=== PATIENT | female | born 1930 | race Caucasian/White ===

== ENCOUNTER 2017-10-22 10:56 | Observation (INO) ==
--- NOTE | 2017-10-22 12:08 | Emergency Department Report ---
Extremity Problem HPI - General Chief complaint: Extremity Problem,Nontraumatic Stated complaint: right leg pain Time Seen by Provider: 10/22/17 12:08 Source: patient, family - History of Present Illness HPI Narrative: 87 YO F presents to ED with right lateral hip/thigh pain that started last 10-17-17. Patient denies any known injury/trauma. Pain is worse with movement. Saw GABE at Dr. Perrin's office who did an x-ray which did not show any acute findings. PA sent patient to PT and pain has worsen since that time. Patient presents to the ED today with 10/10 pain and has been taking tylenol which has not improved pain. Patient denies fever, chills, nausea, vomiting, abdominal pain, new swelling of right leg/calf pain. Severity scale (1-10): 10 - Related Data Home Medications Medication Instructions Recorded Confirmed Atorvastatin Calcium 40 mg PO HS #0 05/21/16 10/22/17 Cholecalciferol [Vit. D-3] 1,000 unit PO DAILY #0 05/21/16 10/22/17 NIFEdipine [Afeditab Cr] 30 mg PO PM #0 05/21/16 10/22/17 Nitroglycerin 0.4 mg SL Q5MIN PRN #0 05/21/16 10/22/17 Warfarin Sodium 4 mg PO MOTH #0 05/21/16 10/22/17 Acetaminophen [Pain Relief] 500 mg PO Q6H 10/22/17 10/22/17 Calcium Citrate 1,200 mg PO DAILY 10/22/17 10/22/17 Carvedilol 25 mg PO BID 10/22/17 10/22/17 Fesoterodine SR [Toviaz] 4 mg PO AM 10/22/17 10/22/17 Latanoprost [Latanoprost] 1 drop EACH EYE HS 10/22/17 10/22/17 Pyridostigmine [Mestinon] 60 mg PO TID 10/22/17 10/22/17 Vitamin B Complex [Super B-50 1 each PO DAILY 10/22/17 10/22/17 Complex] Warfarin [Coumadin] 3 mg PO SUTUWEFRSA 10/22/17 10/22/17 hydroCHLOROthiazide 25 mg PO MOWEFR 10/22/17 10/22/17 [Hydrochlorothiazide] Allergies Allergy/AdvReac Type Severity Reaction Status Date / Time meloxicam Allergy Unknown Verified 10/22/17 11:17 aspirin AdvReac Intermediate BLEEDING Verified 10/22/17 11:17 STOMACH codeine AdvReac Intermediate STOMACH Verified 10/22/17 11:17 ACHE lisinopril AdvReac Mild COUGH Verified 10/22/17 11:17 Sulfa (Sulfonamide AdvReac Mild UPSET Verified 10/22/17 11:17 Antibiotics) STOMACH acetaminophen AdvReac Unknown N/V Verified 10/22/17 11:17 hydrocodone AdvReac Unknown N/V Verified 10/22/17 11:17 Review of Systems All systems: reviewed and negative except as stated Musculoskeletal: Reports: as per HPI, arthralgia, myalgia PFSH Patient Stated Medical History Glaucoma Yes Cardiac Arrhythmia Yes: AFib Congestive Heart Failure Yes Hypertension Yes Pneumonia Yes Sleep Apnea Yes Gastroesophageal Reflux Yes Disease Clinic Medical History (Last Updated 10/01/17 @ 13:49 by LORENA Leo ) Atrial dilatation (Chronic Medical) CPAP/BiPAP dependence (Chronic Medical) FH: HTN (hypertension) (Chronic Medical) Surgical History: x 2. viens both legs. bunion both feet. cataract. laser surgery for glaucoma: September & October 2016 Family History: Family History (Last Reviewed 10/01/17 @ 13:45 by LORENA Leo) Father Heart attack Mother Heart attack Paternal Grandmother Gallbladder cancer Maternal Grandfather Heart disease Paternal Grandfather Heart disease - Social History Smoking status: Never smoker Substance use type: does not use Alcohol intake frequency: does not drink Current occupational status: retired Physical Exam - General General appearance: alert - Normal Exams: Head:: Normocephalic without trauma Eyes:: No scleral icterus, irritation ENMT:: No facial trauma, nasal exudates Chest/Respirations:: Clear all hdz, with good airflow, and symmetry bilaterally Cardiovascular:: Regular rate and rhythm, Pulses 2+ all extremities Neurological:: Patient is alert, and oriented, motor/sensory/cerebellar, exams w /o gross deficits, to observation Psychiatric:: Patient exhibits, appropriate attention, emotion and affect - Eye Eye exam: Present: EOMI - Neck Neck exam: Present: trachea midline - Abdominal Exam Abdominal exam: Present: soft, tenderness (mild TTP in right groin), normal bowel sounds (x4). Absent: distention, guarding, rebound, rigidity - Expanded Lower Extremity Exam right Hip/Pelvis exam: Present: full ROM, tenderness (mild TTP over lateral hip), pelvis stable. Absent: swelling, ecchymosis, deformity, crepitus, dislocation, erythema, external rotation, internal rotation, shortening Upper leg exam: Present: tenderness (mild TTP over lateral thigh). Absent: swelling, ecchymosis, deformity, crepitus, dislocation, erythema Knee exam: Present: full ROM. Absent: tenderness, swelling, ecchymosis, deformity Ankle exam: Present: full ROM. Absent: tenderness, swelling, ecchymosis, deformity, crepitus Foot/toe exam: Present: full ROM. Absent: tenderness, swelling Neurovascular/Tendon exam: Present: normal fine/light touch. Absent: sensory deficit, extremity cold to touch, pallor - Skin Skin exam: Present: warm, dry Course - Consultations Consultation #1: I discussed patient's HPI, past medical history, CT scans, labs, vital signs, exam findings and treatment in the ER with Dr. Khan hospitalist. Dr. Khan will admit patient observation medical. Vital Signs Temperature 98.7 F 10/22/17 11:00 Pulse Rate 74 10/22/17 11:00 Respiratory Rate 24 10/22/17 11:00 Blood Pressure 233/95 H 10/22/17 11:00 Pulse Oximetry 95 10/22/17 11:00 Temperature 97.7 F 10/22/17 16:57 Pulse Rate 83 10/22/17 19:25 Respiratory Rate 16 10/22/17 16:57 Blood Pressure 180/85 H 10/22/17 20:00 Pulse Oximetry 97 10/22/17 16:57 Extremity Problem, Nontraumati - [facility] Narrative Medical decision making narrative: Dr. Ornelas called with report of large retroperitoneal hemorrhage extending along the right iliopsoas muscle with large hematoma. Due to patient history of no known trauma most likely related to warfarin anticoagulation. Hgb 8.8, last Hgb to compare was 11-16 of 12.5 BUN 27. - Differential Diagnosis Likely: cellulitis (, sciatica, musculoskeletal pain, arthritis, fracture), deep vein thrombosis of lower extremity - Medical Records Attestation: I reviewed the patient's medical records. - Lab Data Attestation: I reviewed the patient's lab results. Result diagrams: 10/22/17 20:50 10/22/17 14:29 Lab Results 10/22/17 10/22/17 10/22/17 Range/Units 14:29 14:30 14:30 WBC 6.1 (4.5-11.0) T/MM3 RBC 2.83 L (4.00-5.20) M/MM3 Hgb 8.8 L (12-16) GM/DL Hct 27.7 L (36-46) % MCV 97.9 (80-100) UM3 MCH 31.1 (26-34) UUG MCHC 31.8 (31-37) GM/DL RDW Std Deviation 47.2 (36.9-50.2) FL Plt Count 206 (130-400) T/MM3 MPV 9.8 (9.4-12.4) UM3 Immature Gran % (Auto) 0.2 (0.0-0.5) % Neut % (Auto) 73.7 H (33-66) % Lymph % (Auto) 13.0 L (23-45) % Schuyler % (Auto) 11.5 H (0-9.0) % Eos % (Auto) 1.3 (0-4) % Baso % (Auto) 0.3 (0-2) % Neut # (Auto) 4.5 (1.8-7.7) T/MM3 Lymph # (Auto) 0.8 L (1-4.8) T/MM3 Schuyler # (Auto) 0.7 (0-0.8) T/MM3 Eos # (Auto) 0.1 (0-0.5) T/MM3 Baso # (Auto) 0.0 (0-0.2) T/MM3 Abs Immat Gran (auto) 0.01 (0.00-0.03) T/MM3 INR 4.31 H (0.92-1.18) Turbidity < 20 (0-20) Sodium 144 (134-144) MEQ/L Potassium 3.6 (3.6-5) MEQ/L Chloride 104 (98-107) MEQ/L Carbon Dioxide 32 H (22-30) MEQ/L Anion Gap 8 (5-15) meq/L BUN 27.0 H (7-17) MG/DL Creatinine 0.7 (0.7-1.2) mg/dL GFR Calculation 79 BUN/Creatinine Ratio 39 H (6-26) RATIO Glucose 122 H (65-110) MG/DL Calculated Osmolality 283 H (261-280) MOSM/KG Calcium 9.2 (8.4-10.2) MG/DL Total Bilirubin 1.10 (0.20-1.30) MG/DL Conjugated Bilirubin 0.00 (0.00-0.30) mg/dL Unconjugated Bilirubin 0.80 (0.00-1.1) mg/dL Icterus Index < 2 (0-7) AST 60 H (14-36) U/L ALT 30 (1-35) U/L Alkaline Phosphatase 61 (38-126) U/L Total Protein 6.4 (6.3-8.2) g/dL Albumin 3.7 (3.5-5.0) g/dL Globulin 2.7 (2.4-3.6) G/DL Albumin/Globulin Ratio 1.4 (1.1-2.2) RATIO Specimen Hemolysis < 15 (0-25) - Radiology Data Attestation: I reviewed the patient's radiology results. 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 No fractures or traumatic subluxation of the lumbar spine is evident. The facet joints are well aligned with preservation of the intervertebral disk and facet joints. Moderate multilevel degenerative changes. There is a large right retroperitoneal hemorrhage extending along the iliacus muscle. This measures up to 8.5 x 6.3 cm in diameter on axial image #77. There are areas of differential and low attenuation within the hemorrhage suggesting possible active bleeding. There are also areas of hemorrhage in the right psoas muscle measuring up to 1.7 cm in diameter on axial image #60. Diffuse arterial vascular calcifications. IMPRESSION: 1. Large right iliopsoas hemorrhage. Differing attenuations of blood products suggests possible active hemorrhage. 2. No acute lumbar fracture. . Findings: No acute fracture identified. Mild bony demineralization. There is acute hemorrhage seen in the right iliopsoas musculature expanding the iliac is muscle with regions of differential attenuation which could represent blood products of differing ages or possible ongoing bleeding. This extends to the iliopsoas insertion on the femur. There is surrounding inflammation in the right retroperitoneum. The bladder is normal. Uterus appears grossly normal. No free fluid seen in the pelvis peritoneal cavity. Impression: Large right iliopsoas muscular hematoma probably related to anticoagulation given no history of trauma. This has differing regions of attenuation that could represent blood products of differing ages or possibly ongoing bleeding. Recommend correlation with patient's hemoglobin levels. Findings were discussed with the ordering clinician at 1416 on October 22, 2017. . Disposition Clinical Impression: Nontraumatic retroperitoneal hematoma, Warfarin-induced coagulopathy Disposition: [address] [facility] Condition: Improved - Seen By: midlevel
[2017-10-22] MEDS ORDERED: MORPHINE SULFATE 4mg INJECTION IM ONE (12:15)
--- OUTSIDE RECORDS SUMMARY | 2017-10-22 12:26 | External Medical Summary | Referral Summary ---
:1930 Author Organization [facility] Address [address] [place] [address] Care Team Providers Name Role Phone MarychuyJacobo V Primary Care Physician Encounter [facility] Date(s): 05/07/17 - 05/07/17 [facility] [address] [place] [address]- [place] Discharge Diagnosis: Solar degeneration Discharge Diagnosis: Seborrheic keratosis Discharge Diagnosis: Capillary hemangioma Discharge Diagnosis: Cutaneous horn Discharge Diagnosis: History of basal cell carcinoma Discharge Diagnosis: Keratoacanthoma Discharge Disposition: 01-Home or Self Care Attending Physician: Bal Simpson MD Admitting Physician: Bal Simpson MD Problem List Condition Effective Dates Status Health Status Informant Actinic keratosis Active (disorder)(Confirmed) A fib(Confirmed) Active Intermittent atrial Active fibrillation(Confirmed) Allergies(Confirmed) Resolved Angina(Confirmed) Resolved Warfarin anticoagulation(Confirmed) Active Arthritis(Confirmed) Resolved Benign essential hypertension Active (disorder)(Confirmed) CAD (coronary artery Resolved disease)(Confirmed) Carcinoma in situ of skin Active (disorder)(Confirmed) Spondylosis of cervical Active joint(Confirmed) Chicken pox(Confirmed) Resolved Degenerative disc disease, Active cervical(Confirmed) Diverticulosis(Confirmed) Resolved Edema (finding)(Confirmed) Active Severe essential Active hypertension(Confirmed) Fatigue(Confirmed) Active GERD(Confirmed) Resolved Glaucoma(Confirmed) Resolved H/O diplopia(Confirmed) Active Hearing loss(Confirmed) Resolved Heart disease(Confirmed) Resolved Hemangioma (disorder)(Confirmed) Active Hepatitis/Jaundice(Confirmed) Resolved High cholesterol(Confirmed) Active Overactive bladder(Confirmed) Active Hyperlipidemia(Confirmed) Resolved hypertension/high BP(Confirmed) Resolved Inflamed seborrheic keratosis Active (disorder)(Confirmed) Irregular heart rhythm(Confirmed) Resolved Jaundice(Confirmed) Resolved Kyphosis of cervical Active region(Confirmed) Menieres disease(Confirmed) Resolved CERVICALGIA(Confirmed) Active Pneumonia(Confirmed) Resolved Skin cancer(Confirmed) Resolved Cervical spinal stenosis(Confirmed) Active urine infections(Confirmed) Resolved Allergies, Adverse Reactions, Alerts Substance Reaction Severity Status codeine Active sulfamethoxazole Active aspirin Active lisinopril Active meloxicam Active HYDROcodone Nauseated Active Medications atorvastatin 40 mg oral tablet See Instructions, TAKE 1 TABLET BY MOUTH EVERY DAY, # 30 tabs, 11 Refill(s), eRx : [facility] [id number], TAKE 1 TABLET BY MOUTH EVERY DAY Start Date: 09/03/16 Status: Orderedcalcium (as calcium citrate) 250 mg oral tablet 500 mg 2 tabs, Oral, Daily, PT TAKES 1200MG DAILY, # 60 tabs, 0 Refill(s), Pharmacy: [facility] #[id number], 2 tabs Oral Daily Start Date: 04/26/15 Status: Orderedcarvedilol 25 mg oral tablet See Instructions, TAKE 1 TABLET BY MOUTH TWICE DAILY, # 180 tabs, 1 Refill(s), eRx: [employer] [facility] [id number] Start Date: 02/25/17 Status: OrderedhydroCHLOROthiazide 25 mg oral tablet See Instructions, TAKE 1 TABLET BY MOUTH DAILY FOR 3 DAYS PER EACH WEEK, # 36 tabs, 3 Refill(s), eRx: [employer] [id number], TAKE 1 TABLET BY MOUTH DAILY FOR 3 DAYS PER EACH WEEK Start Date: 10/10/16 Status: Orderedlatanoprost 0.005% ophthalmic solution 1 drops, Eye-Both, Bedtime (once a day), # 30 mL, 0 Refill(s), [id number] Start Date: 04/26/15 Status: Orderedmirabegron 25 mg oral tablet, extended release 25 mg 1 tabs, Oral, Daily, do not crush or chew, # 90 tabs, 3 Refill(s), Pharmacy: [facility] [id number], 1 tabs Oral Daily,x90 days,Instr:do not crush or chew Start Date: 08/13/16 Stop Date: 08/08/17 Status: OrderedMyrbetriq 25 mg oral tablet, extended release 25 mg 1 tabs, Oral, Daily, do not crush or chew, # 30 tabs, 0 Refill(s), Pharmacy: [facility] [employer] [facility] [id number], 1 tabs Oral Daily,Instr:do not crush or chew Start Date: 03/18/17 Status: OrderedNIFEdipine 30 mg oral tablet, extended release See Instructions, TAKE 1 TABLET BY MOUTH EVERY DAY, # 90 tabs, eRx: [employer] [facility] [id number] Start Date: 04/18/17 Status: Orderednitroglycerin 0.4 mg sublingual tablet 0.4 mg, SubLingual, q5min, # 30 tabs, 0 Refill(s), Pharmacy: [facility] [employer] [facility] [id number], 0.4 mg SubLingual q5min Start Date: 02/21/17 Status: Orderedpyridostigmine 60 mg/5 mL oral syrup 60 mg 5 mL, Oral, TID, # 150 mL, 0 Refill(s) Start Date: 01/09/17 Status: OrderedTylenol Extra Strength 500 mg oral tablet 500 mg, Oral, q6hr, # 120 tabs, 0 Refill(s), Pharmacy: [facility] #[id number] , 500 mg Oral q6hr Start Date: 04/26/15 Status: OrderedVitamin B Complex oral tablet 1 tabs, Oral, Daily, # 30 tabs, 0 Refill(s) Start Date: 01/04/14 Status: OrderedVitamin D3 1000 intl units oral tablet 1,000 Intl_Units 1 tabs, Oral, Daily, # 30 tabs, 0 Refill(s), Pharmacy: [facility] #[id number], 1 tabs Oral Daily Start Date: 04/26/15 Status: Orderedwarfarin 2 mg oral tablet See Instructions, TAKE 3MG BY MOUTH EVERY DAY, # 100 tabs, eRx: [facility] [employer] [facility] [id number] Start Date: 04/18/17 Status: Ordered Immunizations Given and Recorded Vaccine Date Status Refusal Reason pneumococcal 13-valent conjugate vaccine 01/31/16 Given zoster vaccine live 06/02/12 Given influenza virus vaccine, live 04/04/11 Given pneumococcal 23-polyvalent vaccine 10/02/04 Recorded tetanus-diphth toxoids (Td) adult/adol 10/02/04 Given Procedures Procedure Date Related Diagnosis Body Site Destruction (eg, laser surgery, electrosurgery, 05/07/17 cryosurgery, chemosurgery, surgical curettement), premalignant lesions (eg, actinic keratoses); first lesion Destruction (eg, laser surgery, electrosurgery, 05/07/17 cryosurgery, chemosurgery, surgical curettement), premalignant lesions (eg, actinic keratoses); second through 14 lesions, each (List separately in addition to code for first lesion) Rt C4-6 Radiofrequency 05/11/15 Right C4-6 Radiofrequency 05/19/14 Right C4-6 Medial Branch Block w/Diff 05/03/14 Right C4-6 Medial Branch Block 04/26/14 Knee replacement Left 2006 Colonoscopy 2004 Cystoscopy 1997 Knee replacement Right 1996 Surgery [place] 1994 Cystoscopy 1993 Cystoscopy, bladder biopsy 1978 Appendectomy 1965 Bunionectomy Cataract extraction section D&C - Dilatation and curettage Endometrial biopsy1 Miscellaneous2 Sigmoidoscopy Tonsillectomy Tubal ligation [id number] on both eyes. - Glaucoma Social History Social History Type Response Smoking Status Never smoker entered on: 01/04/14 Assessment and Plan Extracted from: Title: Office Visit Note Author: Bal Simpson MD Date: 05/07/17 Capillary hemangioma Cutaneous horn, Keratoacanthoma History of basal cell carcinoma Seborrheic keratosis Solar degeneration
--- OUTSIDE RECORDS SUMMARY | 2017-10-22 12:26 | External Medical Summary | Referral Summary ---
:1930 Author Organization [facility] [place] [address] [place] [address] Care Team Providers Name Role Phone Jacobo Perrin V Primary Care Physician Encounter [facility] [id number] Date(s): 02/21/17 - 02/21/17 [facility] [place] [address] [place] [address]- [place] Discharge Diagnosis: Benign essential hypertension Discharge Diagnosis: Warfarin anticoagulation Discharge Diagnosis: Intermittent atrial fibrillation Discharge Disposition: 01-Home or Self Care Attending Physician: Jacobo Perrin MD Admitting Physician: Jacobo Perrin MD Vital Signs Most recent to oldest [Reference Range]: 1 Peripheral Pulse Rate [60-100 bpm] 62 bpm (02/21/17 2:17 PM) Respiratory Rate [14-20 br/min] 18 br/min (02/21/17 2:17 PM) Blood Pressure [90-140/60-90 mmHg] 154/52 mmHg *HI* (02/21/17 2:17 PM) Problem List Condition Effective Dates Status Health [...] Adverse Reactions, Alerts Substance Reaction Severity Status aspirin Active codeine Active HYDROcodone Nauseated Active lisinopril Active meloxicam Active sulfamethoxazole Active Medications atorvastatin 40 mg oral tablet See Instructions, TAKE 1 TABLET BY MOUTH EVERY DAY, # 30 tabs, 11 Refill(s), eRx : [facility] [id number], TAKE 1 TABLET BY MOUTH EVERY DAY Start Date: 09/03/16 Status: Orderedcalcium (as calcium citrate) 250 mg oral tablet 500 mg 2 tabs, Oral, Daily, PT TAKES 1200MG DAILY, # 60 tabs, 0 Refill(s), [facility] #[id number], 2 tabs Oral Daily Start Date: 04/26/15 Status: Orderedcarvedilol 25 mg oral tablet See Instructions, TAKE 1 TABLET BY MOUTH TWICE DAILY, # 180 tabs, eRx: [facility] [id number] Start Date: 11/28/16 Status: OrderedhydroCHLOROthiazide 25 mg oral tablet See Instructions, TAKE 1 TABLET BY MOUTH DAILY FOR 3 DAYS PER EACH WEEK, # 36 tabs, 3 Refill(s), eRx: [facility] [id number], TAKE 1 TABLET BY MOUTH DAILY FOR 3 DAYS PER EACH WEEK Start Date: 10/10/16 Status: Orderedlatanoprost 0.005% ophthalmic solution 1 drops, Eye-Both, Bedtime (once a day), # 30 mL, 0 Refill(s), [facility] #[id number] Start Date: 04/26/15 Status: Orderedmirabegron 25 mg oral tablet, extended release 25 mg 1 tabs, Oral, Daily, do not crush or chew, # 90 tabs, 3 Refill(s), Pharmacy: [facility] [id number], 1 tabs Oral Daily,x90 days,Instr:do not crush or chew Start Date: 08/13/16 Stop Date: 08/08/17 Status: OrderedMyrbetriq 25 mg oral tablet, extended release 25 mg 1 tabs, Oral, Daily, do not crush or chew, # 30 tabs, 0 Refill(s) Start Date: 08/20/16 Status: OrderedNIFEdipine 30 mg oral tablet, extended release See Instructions, TAKE 1 TABLET BY MOUTH EVERY DAY, # 90 tabs, 1 Refill(s), eRx : [facility] [id number] Start Date: 10/15/16 Status: Orderednitroglycerin 0.4 mg sublingual tablet 0.4 mg, SubLingual, q5min, # 30 tabs, 0 Refill(s), Pharmacy: [facility] [id number], 0.4 mg SubLingual q5min Start Date: 02/21/17 Status: Orderedpyridostigmine 60 mg/5 mL oral syrup 60 mg 5 mL, Oral, TID, # 150 mL, 0 Refill(s) Start Date: 01/09/17 Status: OrderedTylenol Extra Strength 500 mg oral tablet 500 mg, Oral, q6hr, # 120 tabs, 0 Refill(s), Pharmacy: [facility] #[id number] , 500 mg Oral q6hr Start Date: 04/26/15 Status: OrderedVitamin B Complex oral tablet 1 tabs, Oral, Daily, # 30 tabs, 0 Refill(s) Start Date: 01/04/14 Status: OrderedVitamin D3 1000 intl units oral tablet 1,000 Intl_Units 1 tabs, Oral, Daily, # 30 tabs, 0 Refill(s), Pharmacy: [facility] #[id number], 1 tabs Oral Daily Start Date: 04/26/15 Status: Orderedwarfarin 2 mg oral tablet See Instructions, TAKE 3MG BY MOUTH EVERY DAY, # 100 tabs, eRx: [facility] [id number] Start Date: 02/20/17 Status: Ordered Immunizations Given and Recorded Vaccine Date Status Refusal Reason pneumococcal 13-valent conjugate vaccine 01/31/16 Given zoster vaccine live 06/02/12 Given influenza virus vaccine, live 04/04/11 Given tetanus-diphth toxoids (Td) adult/adol 10/02/04 Given pneumococcal 23-polyvalent vaccine 10/02/04 Recorded Procedures Procedure Date Related Diagnosis Body Site Rt C4-6 Radiofrequency 05/11/15 Right C4-6 Radiofrequency 05/19/14 Right C4-6 Medial Branch Block w/Diff 05/03/14 Right C4-6 Medial Branch Block 04/26/14 Knee replacement Left 2006 Colonoscopy 2004 Cystoscopy 1997 [facility] Cystoscopy, bladder biopsy 1978 Appendectomy 1965 Bunionectomy Cataract extraction section D&C - Dilatation and curettage Endometrial biopsy1 Sigmoidoscopy Tonsillectomy Tubal ligation 1Negative Social History Social History Type Response Smoking Status Never smoker
--- OUTSIDE RECORDS SUMMARY | 2017-10-22 12:27 | External Medical Summary | Referral Summary ---
:1930 Author Organization [facility], [facility] Address [address] [place] [address] [place] [id number] Care Team Providers Name Role Phone Jacobo Perrin V Primary Care Physician Encounter VC Date(s): 03/08/17 - 03/08/17 [facility] [address] [place] [phone] [place] Discharge Disposition: 01-Home or Self Care Attending Physician: Jacobo Perrin MD Admitting Physician: Jacobo Perrin MD Vital Signs Most recent to oldest [Reference Range]: 1 Blood Pressure [90-140/60-90 mmHg] 166/58 mmHg *HI* (03/08/17 1:29 PM) Problem List Condition Effective Dates Status [...] # 30 tabs, 11 Refill(s), eRx : [facility] [id number], TAKE 1 TABLET BY MOUTH EVERY DAY Start Date: 09/03/16 Status: Orderedcalcium (as calcium citrate) 250 mg oral tablet 500 mg 2 tabs, Oral, Daily, PT TAKES 1200MG DAILY, # 60 tabs, 0 Refill(s), Pharmacy: [facility] #[id number], 2 tabs Oral Daily Start Date: 04/26/15 Status: Orderedcarvedilol 25 mg oral tablet See Instructions, TAKE 1 TABLET BY MOUTH TWICE DAILY, # 180 tabs, 1 Refill(s), eRx: [facility] [id number] Start Date: 02/25/17 Status: OrderedhydroCHLOROthiazide 25 mg oral tablet See Instructions, TAKE 1 TABLET BY MOUTH DAILY FOR 3 DAYS PER EACH WEEK, # 36 tabs, 3 Refill(s), eRx: [facility] [id number], TAKE 1 TABLET BY MOUTH DAILY FOR 3 DAYS PER EACH WEEK Start Date: 10/10/16 Status: Orderedlatanoprost 0.005% ophthalmic solution 1 drops, Eye-Both, Bedtime (once a day), # 30 mL, 0 Refill(s), [id number] Start Date: 04/26/15 Status: Orderedmirabegron 25 mg oral tablet, extended release 25 mg 1 tabs, Oral, Daily, do not crush or chew, # 90 tabs, 3 Refill(s), Pharmacy: [facility] [id number], 1 tabs Oral Daily,x90 days,Instr:do not crush [...] # 90 tabs, 1 Refill(s), [facility] : [facility] [facility] [id number] Start Date: 10/15/16 Status: Orderednitroglycerin 0.4 mg sublingual tablet 0.4 mg, SubLingual, q5min, # 30 tabs, 0 Refill(s), Pharmacy: [facility] [employer] [id number], 0.4 mg SubLingual q5min Start Date: 02/21/17 Status: Orderedpyridostigmine 60 mg/5 mL oral syrup 60 mg 5 mL, Oral, TID, # 150 mL, 0 Refill(s) Start Date: 01/09/17 Status: OrderedTylenol Extra Strength 500 mg oral tablet 500 mg, Oral, q6hr, # 120 tabs, 0 Refill(s), Pharmacy: [facility] #[id number] , 500 mg Oral q6hr Start Date: 04/26/15 Status: OrderedVitamin B Complex oral tablet 1 tabs, Oral, Daily, # 30 tabs, 0 Refill(s) Start Date: 01/04/14 Status: OrderedVitamin D3 1000 intl units oral tablet 1,000 Intl_Units 1 tabs, Oral, Daily, # 30 tabs, 0 Refill(s), Pharmacy: [facility] #[id number], 1 tabs Oral Daily Start Date: 04/26/15 Status: Orderedwarfarin 2 mg oral tablet See Instructions, TAKE 3MG BY MOUTH EVERY DAY, # 100 tabs, [facility]Rx: [facility] [employer] [id number] Start Date: 02/20/17 Status: Ordered Immunizations Given [...] Knee replacement Left 2006 Colonoscopy 2004 Cystoscopy 1998 Knee replacement Right 1997 Surgery Bernard[place]oe 1994 Cystoscopy 1993 Cystoscopy, bladder biopsy 1978 Appendectomy 1965 Bunionectomy Cataract extraction section D&C - Dilatation and curettage Endometrial biopsy1 Miscellaneous2 Sigmoidoscopy Tonsillectomy Tubal ligation [id number] on both eyes. - Glaucoma Social History Social History Type Response Smoking Status Never smoker entered on: 01/04/14 Assessment and Plan Extracted from: Title: Ambulatory Patient Education Author: Toñito Deluna RN Date: 03/08/17 Preventive Health Fall Prevention in the Home Falls can cause injuries. They can happen to people of all ages. There are many things you can do to make your home safe and to help prevent falls. WHAT CAN I DO ON THE OUTSIDE OF MY HOME? Regularly fix the edges of walkways and driveways and fix any cracks. Remove anything that might make you trip as you walk through a door, such as a raised step or threshold. Trim any bushes or trees on the path to your home. Use bright outdoor lighting. Clear any walking paths of anything that might make someone trip, such as rocks or tools. Regularly check to see if handrails are loose or broken. Make sure that both sides of any steps have handrails. Any raised decks and porches should have guardrails on the edges. Have any leaves, snow, or ice cleared regularly. Use sand or salt on walking paths during winter. Clean up any spills in your garage right away. This includes oil or grease spills. WHAT CAN I DO IN THE BATHROOM? Use night lights. Install grab bars by the toilet and in the tub and shower. Do not use towel bars as grab bars. Use non-skid mats or decals in the tub or shower. If you need to sit down in the shower, use a plastic, non-slip stool. Keep the floor dry. Clean up any water that spills on the floor as soon as it happens. Remove soap buildup in the tub or shower regularly. Attach bath mats securely with double-sided non-slip rug tape. Do not have throw rugs and other things on the floor that can make you trip. WHAT CAN I DO IN THE BEDROOM? Use night lights. Make sure that you have a light by your bed that is easy to reach. Do not use any sheets or blankets that are too big for your bed. They should not hang down onto the floor. Have a firm chair that has side arms. You can use this for support while you get dressed. Do not have throw rugs and other things on the floor that can make you trip. WHAT CAN I DO IN THE KITCHEN? Clean up any spills right away. Avoid walking on wet floors. Keep items that you use a lot in [id number] places. If you need to reach something above you, use a strong step stool that has a grab bar. Keep electrical cords out of the way. Do not use floor bolivian or wax that makes floors slippery. If you must use wax, use non-skid floor wax. Do not have throw rugs and other things on the floor that can make you trip. WHAT CAN I DO WITH MY STAIRS? Do not leave any items on the stairs. Make sure that there are handrails on both sides of the stairs and use them. Fix handrails that are broken or loose. Make sure that handrails are as long as the stairways. Check any carpeting to make sure that it is firmly attached to the stairs. Fix any carpet that is loose or worn. Avoid having throw rugs at the top or bottom of the stairs. If you do have throw rugs, attach them to the floor with carpet tape. Make sure that you have a light switch at the top of the stairs and the bottom of the stairs. If you do not have them, ask someone to add them for you. WHAT ELSE CAN I DO TO HELP PREVENT FALLS? Wear shoes that: Do not have high heels. Have rubber bottoms. Are comfortable and fit you well. Are closed at the toe. Do not wear sandals. If you use a stepladder: Make sure that it is fully opened. Do not climb a closed stepladder. Make sure that both sides of the stepladder are locked into place. Ask someone to hold it for you, if possible. Clearly catrina and make sure that you can see: Any grab bars or handrails. First and last steps. Where the edge of each step is. Use tools that help you move around (mobility aids) if they are needed. These include: Canes. Walkers. Scooters. Crutches. Turn on the lights when you go into a dark area. Replace any light bulbs as soon as they burn out. Set up your furniture so you have a clear path. Avoid moving your furniture around. If any of your floors are uneven, fix them. If there are any pets around you, be aware of where they are. Review your medicines with your doctor. Some medicines can make you feel dizzy. This can increase your chance of falling. Ask your doctor what other things that you can do to help prevent falls. This information is not intended to replace advice given to you by your health care provider. Make sure you discuss any questions you have with your health care provider. Document Released: 04/13/2010 Document Revised: 11/01/2015 Document Reviewed: 07/22/2015 Elsevier Interactive Patient Education 2016 [employer] No follow up information was provided.
--- NOTE | 2017-10-22 14:15 | CT Scan Report ---
Indication: lateral hip and thigh pain PROCEDURE: CT lumbar spine wo con: Encounter: Initial Comparison: None Technique: Axial noncontrast CT imaging of the lumbar spine was performed with coronal and sagittal two-dimensional reformats. Automated Exposure Control and Iterative Reconstruction dose reducing techniques were utilized. 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 No fractures or traumatic subluxation of the lumbar spine is evident. The facet joints are well aligned with preservation of the intervertebral disk and facet joints. Moderate multilevel degenerative changes. There is a large right retroperitoneal hemorrhage extending along the iliacus muscle. This measures up to 8.5 x 6.3 cm in diameter on axial image #77. There are areas of differential and low attenuation within the hemorrhage suggesting possible active bleeding. There are also areas of hemorrhage in the right psoas muscle measuring up to 1.7 cm in diameter on axial image #60. Diffuse arterial vascular calcifications. IMPRESSION: 1. Large right iliopsoas hemorrhage. Differing attenuations of blood products suggests possible active hemorrhage. 2. No acute lumbar fracture. .
--- NOTE | 2017-10-22 14:20 | CT Scan Report ---
Indication: lateral hip and thigh pain PROCEDURE: CT pelvis wo con: Encounter: Initial Comparison: CT lumbar spine from the same date Technique: Axial noncontrast CT imaging through the pelvis with coronal and sagittal two-dimensional reformats. Automated Exposure Control and Iterative Reconstruction dose reducing techniques were utilized. Findings: No acute fracture identified. Mild bony demineralization. There is acute hemorrhage seen in the right iliopsoas musculature expanding the iliac is muscle with regions of differential attenuation which could represent blood products of differing ages or possible ongoing bleeding. This extends to the iliopsoas insertion on the femur. There is surrounding inflammation in the right retroperitoneum. The bladder is normal. Uterus appears grossly normal. No free fluid seen in the pelvis peritoneal cavity. Impression: Large right iliopsoas muscular hematoma probably related to anticoagulation given no history of trauma. This has differing regions of attenuation that could represent blood products of differing ages or possibly ongoing bleeding. Recommend correlation with patient's hemoglobin levels. Findings were discussed with the ordering clinician at 1416 on October 22, 2017. .
[2017-10-22] MEDS ORDERED: HYDRALAZINE 20 MG/ML INJECTION IVP ONE (15:13)
[2017-10-22] MEDS: SALINE FLUSH 10ml SYRINGE IVF PRN ×4 (15:24→22:25)
[2017-10-22] MEDS ORDERED: MORPHINE SULFATE 2mg INJ IVP ONE (16:21)
--- NOTE | 2017-10-22 16:31 | History & Physical Report ---
History of Present Illness Date: 10/22/17 Chief complaint: right hip/leg pain HPI: Patient is an 87-year-old female who presents to the emergency room today due to increasing pain in the right hip and leg. She states the pain started 5 days ago. On 10/18/17 she saw a mid-level provider at Dr. Perrin's office who did a back x-ray revealing no obvious cause. Pain has progressed over the weekend to the point where today she decided to come to the emergency room. Her pain is 10/ 10. It is worse with movement. Tylenol does not help the pain. She has no associated symptoms. Patient had a CT of the lumbar spine and pelvis in the emergency room showing a large right iliopsoas hemorrhage with differing attenuations of blood products suggesting possible active hemorrhage. She reports her INR has recently been as high as 3.9 and they have been adjusting her Coumadin. Her INR today in ER was 4.3. She's had no obvious bruising or other sources of bleeding. Her hemoglobin today was 8.8. She is unaware if she's had a recent blood counts. Her last documented hemoglobin was 12.5 in our system dated 05/21/16. States overall she has been feeling well. She's had no recent diet or medication changes. Review of Systems All systems PM: 10-point ROS was reviewed, no additional remarkable complaints except (right hip and leg pain, fatigue) Past Medical History Medical History: Medical History (Last Updated 10/01/17 @ 13:49 by Maci Bland [facility]) Atrial dilatation CPAP/BiPAP dependence FH: HTN (hypertension) Medical History Updates: Atrial fibrillation. Hypertension. Sleep apnea-CPAP. Hyperlipidemia Surgical History: x 2, incidental appendectomy with first . viens both legs. bunion both feet. cataract. Numerous surgeries for hammertoes. Bilateral TKA. Tonsillectomy and adenoidectomy. laser surgery for glaucoma: September & October 2016 Family History: Family History Father Heart attack Mother Heart attack Paternal Grandmother Gallbladder cancer Maternal Grandfather Heart disease Paternal Grandfather Heart disease Family History Updates: 2 brothers with heart disease Family History: As Above - Social History Smoking status: Never smoker Medications Home Medications Medication Instructions Recorded Confirmed Type Atorvastatin Calcium 40 mg PO HS #0 05/21/16 10/22/17 History Cholecalciferol [Vit. D-3] 1,000 unit PO DAILY #0 05/21/16 10/22/17 History NIFEdipine [Afeditab Cr] 30 mg PO PM #0 05/21/16 10/22/17 History Nitroglycerin 0.4 mg SL Q5MIN PRN #0 05/21/16 10/22/17 History Warfarin Sodium 4 mg PO MOTH #0 05/21/16 10/22/17 History Acetaminophen [Pain Relief] 500 mg PO Q6H 10/22/17 10/22/17 History Calcium Citrate 1,200 mg PO DAILY 10/22/17 10/22/17 History Carvedilol 25 mg PO BID 10/22/17 10/22/17 History Fesoterodine SR [Toviaz] 4 mg PO AM 10/22/17 10/22/17 History Latanoprost [Latanoprost] 1 drop EACH EYE HS 10/22/17 10/22/17 History Pyridostigmine [Mestinon] 60 mg PO TID 10/22/17 10/22/17 History Vitamin B Complex [Super B-50 1 each PO DAILY 10/22/17 10/22/17 History Complex] Warfarin [Coumadin] 3 mg PO SUTUWEFRSA 10/22/17 10/22/17 History hydroCHLOROthiazide 25 mg PO MOWEFR 10/22/17 10/22/17 History [Hydrochlorothiazide] Allergies Allergy/AdvReac Type Severity Reaction Status Date / Time meloxicam Allergy Unknown Verified 10/22/17 11:17 aspirin AdvReac Intermediate BLEEDING Verified 10/22/17 11:17 STOMACH codeine AdvReac Intermediate STOMACH Verified 10/22/17 11:17 ACHE lisinopril AdvReac Mild COUGH Verified 10/22/17 11:17 Sulfa (Sulfonamide AdvReac Mild UPSET Verified 10/22/17 11:17 Antibiotics) STOMACH acetaminophen AdvReac Unknown N/V Verified 10/22/17 11:17 hydrocodone AdvReac Unknown N/V Verified 10/22/17 11:17 Exam Vital Signs: Temperature 98.7 F 10/22/17 11:09 Pulse Rate 74 10/22/17 15:45 Respiratory Rate 24 10/22/17 11:09 Blood Pressure 152/63 H 10/22/17 15:41 Pulse Oximetry 96 10/22/17 15:45 Results - Labs CBC & Chem 7: 10/22/17 14:30 10/22/17 14:29 - Imaging and Cardiology CT-lumbar spine Additional comments: Date of Exam: 10/22/17 Indication: lateral hip and thigh pain PROCEDURE: CT lumbar spine wo con: FINDINGS: The alignment of the lumbar spine is abnormal with 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 No fractures or traumatic subluxation of the lumbar spine is evident. The facet joints are well aligned with preservation of the intervertebral disk and facet joints. Moderate multilevel degenerative changes. There is a large right retroperitoneal hemorrhage extending along the iliacus muscle. This measures up to 8.5 x 6.3 cm in diameter on axial image #77. There are areas of differential and low attenuation within the hemorrhage suggesting possible active bleeding. There are also areas of hemorrhage in the right psoas muscle measuring up to 1.7 cm in diameter on axial image #60. Diffuse arterial vascular calcifications. IMPRESSION: 1. Large right iliopsoas hemorrhage. Differing attenuations of blood products suggests possible active hemorrhage. 2. No acute lumbar fracture. Assessment and Plan (1) Hematoma Current visit: Yes Status: Acute Assessment and Plan: Assessment Large right retroperitoneal hemorrhage extending along the iliacus muscle (8.5 x 6.3 cm) Chronic anticoagulation with supratherapeutic INR (4.1) Atrial fibrillation Hypertension-with elevated blood pressure as high as 230 systolic requiring when necessary hydralazine IV Sleep apnea-CPAP Hyperlipidemia Overactive Bladder Mestinon tx per Dr. Cantu for weakness and memory loss Plan Admit, IP. Stay expected to exceed 2 overnights given her retroperitoneal bleed and time it will take to confirm resolution of bleeding and control pain. Hold Coumadin. Vit K 10mg IV. Repeat INR in 6 hours and consider further administration of Vit K if INR >2. Repeat hgb at 2100 and in am to evaluate blood loss. Type and Screen 2 Units PRBC's to have on hand if needed. Will not transfuse at present. Morphine IV and/or percocet po for pain, Zofran IV prn nausea. May use home CPAP. Continue home medications except coumadin. Case discussed with Dr. Currie and Dr. Khan. Care to return to Dr. Perrin on dismissal. 10/22/2017-6:30 PM-I examined the patient independently. I reviewed this chart, the patient history, and the MEDICAL BILLING ASSISTANT's/PA's documented findings as above. We discussed and formulated the assessment and plan as above with the additions below.-Dr. Khan Patient was seen this evening in her room accompanied by her daughter. The patient states that she fell and hit her right low back about 2 months ago on the bedside commode. She had some bruising with this. She states that 2 weeks ago her INR was elevated at 3.9 but had improved to the high 2 range on recheck. She stated last week she began having pain in her right thigh and posterior leg down to her knee. She underwent physical therapy without any benefit. Her pain worsened throughout the weekend and over the past 2 days. She presented to the emergency room and had a CT with results as above. Currently she rates her pain as an 8 or 9. In the emergency room she received morphine IV 2 which did help but the pain has been come back. She has history of difficult to control high blood pressure and systolic was as high as 230 in the emergency room requiring IV hydralazine. On arrival to the medical floor systolic blood pressure was 188. On recheck blood pressure now is 230/80. The patient states that she took all of her usual medications this morning. She had not taken her Coumadin yet today. She denies any chest pain, headache or shortness of breath. She is a fairly good historian. On exam she is alert and in no acute distress. HEENT reveals sclerae to be anicteric and pupils are equal. Oropharynx is moist. Neck is supple. Chest is clear to auscultation anteriorly. Cardiovascular reveals a regular rate and rhythm. Abdomen is soft and nontender. Extremities are free of edema. I do not see any bruising in the right thigh. Impression and plan Large right iliopsoas muscular hematoma with surrounding inflammation in the right retroperitoneum. This is likely related to anticoagulation with Coumadin. It is difficult to know if it is related to her fall. The patient was given vitamin K and milligrams IV 1. We will recheck INR later today and repeat vitamin K if needed. Will give morphine as needed for pain. The patient is anemic with hemoglobin of 8.8. We'll recheck hemoglobin later today. Transfuse if needed. Regarding difficult to control hypertension-resume the patient's usual home medications. Give morphine now for pain and blood pressure is still elevated, give IV hydralazine as needed. She has hydrochlorothiazide that she takes Wednesdays and Fridays. This could be given today as well if blood pressure is still poorly controlled. Discussed plans with the patient and her daughter. They are in agreement with current plan. Consult PT and OT to see the patient tomorrow. DVT Prophylaxis: SCD's Resuscitation Status: Full Code - Physician Narrative Physician: Tonja Khan MD Narrative: Date: 10/22/17 Time: 1627 Hospital Course Summary Disclaimer: The visit summary below is not to be considered part of the above Progress Note. Hospital Course: 10/22/17 Admit, IP. Stay expected to exceed 2 overnights given her retroperitoneal bleed and time it will take to confirm resolution of bleeding and control pain. Hold Coumadin. Vit K 10mg IV. Repeat INR in 6 hours and consider further administration of Vit K if INR >2. Repeat hgb at 2100 and in am to evaluate blood loss. Type and Screen 2 Units PRBC's to have on hand if needed. Will not transfuse at present. Morphine IV and/or percocet po for pain, Zofran IV prn nausea. May use home CPAP. Continue home medications except coumadin. Case discussed with Dr. Currie and Dr. Khan. Care to return to Dr. Perrin on dismissal.
[2017-10-22] MEDS ORDERED: PHYTONADIONE (Adult) INJ 10 MG in NS 50 ML IV ONE (16:38)
[2017-10-22] MEDS ORDERED: ONDANSETRON 4 MG/2 ML INJECTION IVP PRN (16:39)
[2017-10-22] MEDS ORDERED: NS FLUSH BAG 500ml IV PRN (16:41)
[2017-10-22 17:06] VITALS: BMI 26.1
[2017-10-22] MEDS ORDERED: NS 500 ML IV SCH (17:15)
[2017-10-22] MEDS ORDERED: NITROGLYCERIN 0.4 MG SUBLINGUAL TABLET SL PRN (17:33)
[2017-10-22] MEDS ORDERED: MORPHINE SULFATE 4mg INJECTION IVP ONE (18:25)
[2017-10-22] MEDS ORDERED: HYDRALAZINE 20 MG/ML INJECTION IVP PRN (18:28)
[2017-10-22] MEDS: MORPHINE SULFATE 2mg INJ IVP PRN ×2 (18:36→22:26)
[2017-10-22] MEDS: FESOTERODINE 4 MG PO SCH (18:52)
[2017-10-22] MEDS: --POM--CARVEDILOL 25 MG TABLET PO SCH ×2 (18:53→20:17)
[2017-10-22] MEDS: PYRIDOSTIGMINE 60 MG PO SCH (20:51)
[2017-10-22] MEDS: --POM--NIFEdipine XL 30 MG TABLET PO SCH (20:52)
[2017-10-22] MEDS: --POM--ATORVASTATIN 40 MG TABLET PO SCH (20:52)
[2017-10-22] MEDS ORDERED: CARVEDILOL 25 MG TABLET PO SCH (21:00)
[2017-10-22] MEDS: --POM--LATANOPROST 0.005% EYE DROPS 2.5ml EACH EYE SCH (22:42)
[2017-10-22] MEDS ORDERED: FALL RISK - PHARMACY CONSULT MC ONE (23:27)
[2017-10-23] MEDS: MORPHINE SULFATE 2mg INJ IVP PRN ×2 (04:41→08:18)
[2017-10-23 07:28] VITALS: RESP 18
[2017-10-23] MEDS: ACETAMINOPHEN 500 MG TABLET PO PRN ×3 (08:22→18:18)
[2017-10-23] MEDS: --POM--CARVEDILOL 25 MG TABLET PO SCH ×2 (08:22→18:16)
[2017-10-23] MEDS: FESOTERODINE 4 MG PO SCH (08:59)
[2017-10-23] MEDS: PYRIDOSTIGMINE 60 MG PO SCH ×3 (09:00→21:33)
--- NOTE | 2017-10-23 09:49 | Progress Note ---
- Date 10/23/17 Subjective: F/U: right retroperitoneal hemorrhage along iliacus muscle, a-fib with chronic anticoagulation. Marylin is seen this morning while resting in bed, watching TV. She reports that she is feeling a little better at the moment because she just received pain medications. She complains of severe pain, currently 5/10, which is significant worse with movement. Other than her pain, she reports that she is doing well. She slept well and her appetite is stable. Urinary output is stable. Blood pressure remains elevated despite restarting her home Coreg, Procardia and HCTZ. She received 1 dose of hydralazine 10mg IV yesterday with some improvement in her blood pressure. Repeat labs this morning reveal decrease in hemoglobin to 8.4 (initial Hgb 8.8 on admission, increased to 9.1 last night without treatment or transfusion). She denies any headache, dizziness, lightheadedness, palpitation, chest pain or shortness of breath. INR continues to trend down at 1.39. Telemetry reveals sinus rhythm. She denies any other complaints or concerns. No abdominal pain, nausea, vomiting, dysuria or diarrhea. Objective Vital signs: Temperature 97.3 F 10/23/17 07:22 Pulse Rate 73 10/23/17 07:59 Respiratory Rate 18 10/23/17 07:22 Blood Pressure 182/80 H 10/23/17 07:22 Pulse Oximetry 96 10/23/17 07:22 Rhythm: Normal Sinus Rhythm Height/Weight/BMI: Height 5 ft 7 in Weight 169 lb 5.04 oz Body Mass Index 26.1 Comments: Resting in bed, watching TV, laying very still due to increased pain with movement. - Constitutional Present: no acute distress, well nourished, well developed, cooperative - Routine HEENT Exam Head: Present: normocephalic, atraumatic Eye: Present: PERRL. Absent: conjunctival icterus ENT: Present: mucous membranes moist, oropharynx clear - Routine Respiratory Exam Present: CTA bilaterally. Absent: respiratory distress, rhonchi, wheezes Comments: Used home CPAP at night. - Routine Cardiovascular Exam Present: RRR, S1, S2, murmur - Routine Abdominal Exam Present: soft, normoactive bowel sounds, non tender - Routine Extremities Exam Present: no edema, pulses intact - Routine Back/Spine/Pelvis Exam Back/Spine: Present: kyphosis. Absent: vertebral tenderness - Routine Musculoskeletal Exam Musculoskeletal: Present: limited range of motion (due to pain) - Routine Skin Exam Present: dry, warm Comments: Afebrile. - Routine Neurological Exam Present: alert, oriented X3, moving all extremities, hearing grossly intact, normal speech - Routine Lymphatic Exam Lymphatic: Absent: lymphedema - Routine Psychiatric Exam Present: cooperative Results - Labs CBC & Chem 7: 10/23/17 04:26 10/23/17 04:26 Assessment and Plan (1) Hematoma Current visit: Yes Status: Acute Assessment and Plan: Assessment Large right retroperitoneal hemorrhage extending along the iliacus muscle (8.5 x 6.3 cm) Chronic anticoagulation with supratherapeutic INR (4.1) Atrial fibrillation Normocytic anemia-RLL 10/23/17 Hypertension-with elevated blood pressure as high as 230 systolic requiring when necessary hydralazine IV Sleep apnea-CPAP Hyperlipidemia Overactive Bladder Mestinon tx per Dr. Cantu for weakness and memory loss Plan - 10/23/17: Persistent severe pain. Continue pain control. IV morphine/Percocet as needed. Encourage bowel motivation. Hemoglobin slightly decreased (Hgb 8.4). Continue to monitor closely. Patient asymptomatic. Continue to hold Coumadin. INR trending down at 1.39. Encourage SCDs for DVT prophylaxis. 2 units PRBC typed and screened on hold, available. Will not transfuse at present. Continue home CPAP at night and with sleep. Home medications were resumed 10/22/17 with exception of home Coumadin. Blood pressure remains elevated, though improved slightly after morning meds. Continue to monitor blood pressure closely. IV hydralazine available if systolic >160. PT/OT to see patient today for further evaluation. Recheck labs in AM to monitor blood counts, electrolytes and renal function. DVT Prophylaxis: SCD's Resuscitation Status: Full Code - Time spent with patient Time with patient PN: 30 minutes - Physician Narrative Physician: Brianda Mcduffie MD Narrative: Date: 10/23/17 Time: 1734 I have independently evaluated and examined this patient. I reviewed the chart, the patient's history, and the LOAN CONSULTANT/PA's documented findings as above. We discussed and formulated the assessment and plan as above with additions as below: Mrs. Perrin reports feeling improved overall with improved pain and no lightheadedness. She denied dyspnea. She's been accepted to IRU when medically stable and is considering this option at discharge. NAD, alert, respirations nonlabored with good airflow. Hemoglobin is relatively stable (8.8-9.1-8.4), INR has normalized. If hemoglobin stable overnight will transfer to IRU if patient in agreement. Blood pressure improved this afternoon, patient monitors at home several times a week with typical readings of "120-140/low". Hospital Course Summary Disclaimer: The visit summary below is not to be considered part of the above Progress Note. Hospital Course: 10/22/17 Admit, IP. Stay expected to exceed 2 overnights given her retroperitoneal bleed and time it will take to confirm resolution of bleeding and control pain. Hold Coumadin. Vit K 10mg IV. Repeat INR in 6 hours and consider further administration of Vit K if INR >2. Repeat hgb at 2100 and in am to evaluate blood loss. Type and Screen 2 Units PRBC's to have on hand if needed. Will not transfuse at present. Morphine IV and/or percocet po for pain, Zofran IV prn nausea. May use home CPAP. Continue home medications except coumadin. Poor blood pressure control-resume home medications and monitor. Care to return to Dr. Perrin on dismissal. Plan - 10/23/17: Persistent severe pain. Continue pain control. IV morphine/Percocet as needed. Encourage bowel motivation. Hemoglobin slightly decreased (Hgb 8.4). Continue to monitor closely. Patient asymptomatic. Continue to hold Coumadin. INR trending down at 1.39. Encourage SCDs for DVT prophylaxis. 2 units PRBC typed and screened on hold, available. Will not transfuse at present. Continue home CPAP at night and with sleep. Home medications were resumed 10/22/17 with exception of home Coumadin. Blood pressure remains elevated, though improved slightly after morning meds. Continue to monitor blood pressure closely. IV hydralazine available if systolic >160. PT/OT to see patient today for further evaluation. Recheck labs in AM to monitor blood counts, electrolytes and renal function.
[2017-10-23] MEDS: POLYETHYL GLYCOL 3350 17gm PACKET PO SCH (14:10)
[2017-10-23] MEDS: MORPHINE SULFATE 4mg INJECTION IVP PRN ×2 (15:37→23:05)
[2017-10-23] MEDS: --POM--NIFEdipine XL 30 MG TABLET PO SCH (21:32)
[2017-10-23] MEDS: --POM--ATORVASTATIN 40 MG TABLET PO SCH (21:32)
[2017-10-23] MEDS: --POM--LATANOPROST 0.005% EYE DROPS 2.5ml EACH EYE SCH (22:56)
[2017-10-24] MEDS: SALINE FLUSH 10ml SYRINGE IVF PRN ×3 (03:53→06:53)
[2017-10-24] MEDS: MORPHINE SULFATE 4mg INJECTION IVP PRN ×3 (03:54→14:09)
[2017-10-24] MEDS ORDERED: NS FLUSH BAG 500ml IV PRN (05:11)
[2017-10-24 07:55] VITALS: BP 148/59; TEMP 98.6; O2SAT 95
[2017-10-24] MEDS: ACETAMINOPHEN 500 MG TABLET PO PRN (08:12)
[2017-10-24] MEDS: --POM--CARVEDILOL 25 MG TABLET PO SCH (08:13)
[2017-10-24] MEDS ORDERED: SENNA + DOCUSATE TABLET PO SCH (09:00)
[2017-10-24] MEDS: PYRIDOSTIGMINE 60 MG PO SCH (09:28)
[2017-10-24] MEDS: POLYETHYL GLYCOL 3350 17gm PACKET PO SCH (09:28)
[2017-10-24] MEDS: FESOTERODINE 4 MG PO SCH (09:30)
--- NOTE | 2017-10-24 10:36 | Discharge Summary ---
Discharge Information Date of admission: 10/22/17 15:58 Anticipated date of discharge: 10/24/17 Attending Physician: Brianda Mcduffie MD Primary care physician: Jacobo Perrin MD - Discharge Diagnosis (1) Hematoma Status: Acute Large right retroperitoneal hemorrhage extending along the iliopsoas muscle ( 8.5 x 6.3 cm) Chronic anticoagulation with supratherapeutic INR (4.1) on admission Atrial fibrillation Normocytic anemia Hypertension-with elevated blood pressure as high as 230 systolic requiring when necessary hydralazine IV Sleep apnea-CPAP Hyperlipidemia Overactive Bladder Mestinon tx per Dr. Cantu for weakness and memory loss - Laboratory Labs: 10/24/17 08:53 10/24/17 04:26 - Radiology Radiology: Date of Exam: 10/22/17 Type of Exam(s): CT pelvis wo con Findings: No acute fracture identified. Mild bony demineralization. There is acute hemorrhage seen in the right iliopsoas musculature expanding the iliac is muscle with regions of differential attenuation which could represent blood products of differing ages or possible ongoing bleeding. This extends to the iliopsoas insertion on the femur. There is surrounding inflammation in the right retroperitoneum. The bladder is normal. Uterus appears grossly normal. No free fluid seen in the pelvis peritoneal cavity. Impression: Large right iliopsoas muscular hematoma probably related to anticoagulation given no history of trauma. This has differing regions of attenuation that could represent blood products of differing ages or possibly ongoing bleeding. Recommend correlation with patient's hemoglobin levels. 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 No fractures or traumatic subluxation of the lumbar spine is evident. The facet joints are well aligned with preservation of the intervertebral disk and facet joints. Moderate multilevel degenerative changes. There is a large right retroperitoneal hemorrhage extending along the iliacus muscle. This measures up to 8.5 x 6.3 cm in diameter on axial image #77. There are areas of differential and low attenuation within the hemorrhage suggesting possible active bleeding. There are also areas of hemorrhage in the right psoas muscle measuring up to 1.7 cm in diameter on axial image #60. Diffuse arterial vascular calcifications. IMPRESSION: 1. Large right iliopsoas hemorrhage. Differing attenuations of blood products suggests possible active hemorrhage. 2. No acute lumbar fracture. History of Present Illness HPI: Patient is an 87-year-old female who presents to the emergency room today due to increasing pain in the right hip and leg. She states the pain started 5 days ago. On 10/18/17 she saw a mid-level provider at Dr. Perrin's office who did a back x-ray revealing no obvious cause. Pain has progressed over the weekend to the point where today she decided to come to the emergency room. Her pain is 10/ 10. It is worse with movement. Tylenol does not help the pain. She has no associated symptoms. Patient had a CT of the lumbar spine and pelvis in the emergency room showing a large right iliopsoas hemorrhage with differing attenuations of blood products suggesting possible active hemorrhage. She reports her INR has recently been as high as 3.9 and they have been adjusting her Coumadin. Her INR today in ER was 4.3. She's had no obvious bruising or other sources of bleeding. Her hemoglobin today was 8.8. She is unaware if she's had a recent blood counts. Her last documented hemoglobin was 12.5 in our system dated 05/21/16. States overall she has been feeling well. She's had no recent diet or medication changes. Objective Vital signs: Temperature 98.6 F 10/24/17 07:55 Pulse Rate 68 10/24/17 07:55 Respiratory Rate 18 10/24/17 07:55 Blood Pressure 148/59 H 10/24/17 07:55 Pulse Oximetry 95 10/24/17 07:55 Rhythm: Normal Sinus Rhythm Height/Weight/BMI: Height 1.7 m Weight 78.4 kg Body Mass Index 26.1 - Constitutional Present: no acute distress, well nourished, well developed - Routine HEENT Exam Head: Present: normocephalic Eye: Present: PERRL. Absent: conjunctival icterus, scleral injection ENT: Present: oropharynx clear - Routine Respiratory Exam Present: crackles (bilateral bases) - Routine Cardiovascular Exam Present: RRR, S1, S2, murmur - Routine Abdominal Exam Present: normoactive bowel sounds, non tender, distended - Routine Extremities Exam Present: pulses intact Comments: hematoma/ecchymosis to right groin that extends laterally. There is swelling in this area and it is warm to touch. She has swelling of the right thigh comparatively. Calves are soft and nontender. - Routine Back/Spine/Pelvis Exam Back/Spine: Present: kyphosis (prominent spine in thoracic area) - Routine Musculoskeletal Exam Musculoskeletal: Present: limited range of motion - Routine Skin Exam Present: dry, warm, ecchymosis (as above) - Routine Neurological Exam Present: alert, sensory deficit (c/o subjective numbness along lateral portion of right proximal leg), vision grossly intact, hearing grossly intact, normal speech - Routine Psychiatric Exam Present: normal affect, normal thought process, cooperative Hospital Course This is a general summary of the patient's hospital course. For more details refer to the complete medical record. Hospital course: 10/22/17: ADMITTED TO INPATIENT STATUS - right retroperitoneal hemorrhage extending along the iliopsoas muscle Coumadin held, INR was supratherapeutic and she received vitamin K to reverse coagulopathy. Hgb on admission 8.8 and hgb was trended. Morphine/Percocet PRN pain control. Home meds resumed with exception of Coumadin. Hydralazine was available PRN but was never given. 10/23/17: Hemoglobin slightly decreased (Hgb 8.4). INR trending down at 1.39. PT/OT evaluation: recommended inpatient therapy. 10/24/17: DISCHARGED TO IRU Hgb down to 7.6 and she was given 1 unit PRBC, improving hgb to 9.2. Asymptomatic in regards to anemia. K 3.5 - KDur given. Pt with mild numbness to lateral aspect of right thigh. Constipation persists - will need ongoing bowel motivation. Start IS on IRU - crackles heard on exam. Accepted to IRU, pt/family in agreement with transfer. Will continue to monitor pain, hgb, bowel function and mobility. Pt hopes to return to independent living at [facility]. Time spent with patient: discharge greater than 30 minutes Resuscitation Status: Full Code Discharge Plan - Discharge Disposition Discharge Date: 10/24/17 Disposition: 60 To [facility] *Condition: Improved Reason For Visit (Visit label in EMR): ILIOPSOAS HEMATOMA, WARFARIN COAGULOPATHY - Discharge Medications *Discharge Medications: Continue Atorvastatin Calcium 40 mg PO HS #0 Nitroglycerin 0.4 mg SL Q5MIN PRN #0 PRN Reason: CHEST TIGHTNESS Warfarin Sodium 4 mg PO MOTH #0 Pyridostigmine [Mestinon] 60 mg PO TID Vitamin B Complex [Super B-50 Complex] 1 each PO DAILY Carvedilol 25 mg PO BID hydroCHLOROthiazide [Hydrochlorothiazide] 25 mg PO MOWEFR Calcium Citrate 1,200 mg PO DAILY Acetaminophen [Pain Relief] 500 mg PO Q6H Fesoterodine SR [Toviaz] 4 mg PO AM Cholecalciferol [Vit. D-3] 1,000 unit PO DAILY #0 NIFEdipine [Afeditab Cr] 30 mg PO PM #0 Warfarin [Coumadin] 3 mg PO SUTUWEFRSA Latanoprost 1 drop EACH EYE HS - Discharge Packet/Instructions *Diet: Regular *Activity: PT/OT *Pain Management/Treatment: Tylenol, as needed. May try oral narcotic, low- dose (ie roxicodone) *Wound Care: N/A Additional Instructions: DO NOT RESTART COUMADIN ON IRU *Expected Signs/Symptoms: Pain/swelling and bruising should gradually improve, which will help your mobility. *Notify Physician if: Increased pain or swelling, fever, difficulty breathing or chest pain, dizziness or passing out, or any new concerns. *During Business Hours Contact: Call for your nurse on IRU. *After Business Hours Contact: Call for your nurse. *Pending Lab/Results: No Pending Lab - IRU/GEN Discharge/Transfer - Referrals/Follow Up *Referrals/Follow Up: Jacobo Perrin MD [Primary Care Provider] - - Patient Handouts - Dismissal Complete Discharge Instructions are:: Incomplete Physician Narrative - Narrative Physician: Brianda Mcduffie MD Attestation Narrative: Date: 10/24/17 Time: 2144 I have independently evaluated and examined this patient. I reviewed the chart, the patient's history, and the AMBULANCE MECHANIC/PA's documented findings as above. We discussed and formulated the assessment and plan as above with additions as below: Mrs. Perrin was seen this morning at which time she describes some numbness along the anterolateral aspect of her right thigh and some discomfort (which she appears to minimize) in the right hip and thigh. Patient was observed standing up from a seated position and she obviously has discomfort in doing so and requires assistance with position changes. Moderate bruising present right flank and proximal right thigh laterally; regular cardiac rhythm with systolic murmur. 1 unit packed red blood cells given this morning as noted; stable for transfer to rehabilitation. If continues to have slow drift in hemoglobin may require repeat imaging of abdomen/pelvis. Advised patient and daughter that I will discuss with holding anticoagulation with her merchandising stock associate-Dr. Kian Fermin.
[2017-10-24 14:01] VITALS: PULSE 65
== END 2017-10-24 14:25 ==
LOC: MED 10:56 → ED 10:56 → SUATTDRO 15:58 → MED 16:32
PROVIDERS: ADMIT Internal Medicine; ATTEND Internal Medicine

== ENCOUNTER 2017-10-24 14:25 | Inpatient (IN) ==
--- NOTE | 2017-10-24 15:48 | IRU History & Physical Report ---
HPI IRU Date: Date: 10/24/17 Time: 1544 Chief complaint: Severe right back pain and weakness HPI: 87 year old female admitted from [facility] with Right posterior iliopsoas hemorrhage. Patient is unable to manage daily responsibilities due to severe right back pain resulting from retroperitoneal bleed which was identified 48 hours ago. She was admitted to [facility] for evaluation and management of elevated INR. She does have history of atrial fibrillation and takes Coumadin. INR was 4.1 on admission. She has had issues with uncontrolled hypertension which may have exacerbated the potential for the retroperitoneal hemorrhage. Pain is 8 out of 10 with movement. She has been requiring IV morphine while on the medical floor of the hospital. She does take 2 Tylenol every morning on a regular basis, as an outpatient. She is not on chronic pain medication. She also had chronic anemia with hemoglobin 7.6 this a.m. She was given 1 unit packed red cell as transfusion and hemoglobin improved 9.2. She has numbness on the right lateral thigh which is developed with this, however it is not impacted her ability to walk. She does have pain and loss of strength in the right leg due to the back pain. [facility] Patient Stated Medical History Cataracts Yes Glaucoma Yes Cardiac Arrhythmia Yes: AFib Congestive Heart Failure Yes Hypertension Yes Pneumonia Yes: child Sleep Apnea Yes Gastroesophageal Reflux Yes Disease Clinic Medical History (Last Updated 10/01/17 @ 13:49 by LORENA Leo ) Atrial dilatation (Chronic Medical) CPAP/BiPAP dependence (Chronic Medical) FH: HTN (hypertension) (Chronic Medical) Medical History Updates: Atrial fibrillation. Hypertension. Sleep apnea-CPAP. Hyperlipidemia Surgical History: x 2. viens both legs. bunion both feet. cataract. laser surgery for glaucoma: September & October 2016 Family History: Family History (Last Reviewed 10/01/17 @ 13:45 by LORENA Leo) Father Heart attack Mother Heart attack Paternal Grandmother Gallbladder cancer Maternal Grandfather Heart disease Paternal Grandfather Heart disease Family History Updates: 2 brothers with heart disease - Social History Smoking status: Never smoker Substance use type: does not use Alcohol intake frequency: does not drink Current occupational status: retired Current residence: Apartment/Private Home Review of Systems Comprehensive ROS: completed and no additional positive findings except those as stated Medications Home Medications Medication Instructions Recorded Confirmed Type Atorvastatin Calcium 40 mg PO HS #0 05/21/16 10/24/17 History Cholecalciferol [Vit. D-3] 1,000 unit PO DAILY #0 05/21/16 10/24/17 History NIFEdipine [Afeditab Cr] 30 mg PO PM #0 05/21/16 10/24/17 History Nitroglycerin 0.4 mg SL Q5MIN PRN #0 05/21/16 10/24/17 History Warfarin Sodium 4 mg PO MOTH #0 05/21/16 10/24/17 History Acetaminophen [Pain Relief] 500 mg PO Q6H 10/22/17 10/24/17 History Calcium Citrate 1,200 mg PO DAILY 10/22/17 10/24/17 History Carvedilol 25 mg PO BID 10/22/17 10/24/17 History Fesoterodine SR [Toviaz] 4 mg PO AM 10/22/17 10/24/17 History Latanoprost 1 drop EACH EYE HS 10/22/17 10/24/17 History Pyridostigmine [Mestinon] 60 mg PO TID 10/22/17 10/24/17 History Vitamin B Complex [Super B-50 1 each PO DAILY 10/22/17 10/24/17 History Complex] Warfarin [Coumadin] 3 mg PO SUTUWEFRSA 10/22/17 10/24/17 History hydroCHLOROthiazide 25 mg PO MOWEFR 10/22/17 10/24/17 History [Hydrochlorothiazide] Allergies Allergy/AdvReac Type Severity Reaction Status Date / Time meloxicam Allergy Unknown Verified 10/22/17 11:17 aspirin AdvReac Intermediate BLEEDING Verified 10/22/17 11:17 STOMACH codeine AdvReac Intermediate STOMACH Verified 10/22/17 11:17 ACHE lisinopril AdvReac Mild COUGH Verified 10/22/17 11:17 Sulfa (Sulfonamide AdvReac Mild UPSET Verified 10/22/17 11:17 Antibiotics) STOMACH acetaminophen AdvReac Unknown N/V Verified 10/22/17 11:17 hydrocodone AdvReac Unknown N/V Verified 10/22/17 11:17 Results IRU - Labs Labs: Labs reviewed please see labs. Hospitalist is managing anemia and hypokalemia. Exam Vital Signs: Temperature 98.9 F 10/24/17 14:43 Pulse Rate 76 10/24/17 14:43 Respiratory Rate 18 10/24/17 14:43 Blood Pressure 147/52 H 10/24/17 14:43 Pulse Oximetry 96 10/24/17 14:43 Telemetry Rhythm: Sinus Rhythm - Constitutional Present: no acute distress - Routine HEENT Exam Head: Present: normocephalic - Routine Respiratory Exam Present: crackles (mild crackles heard bilateral bases on expiration.). Absent : prolonged expiratory phase - Routine Cardiovascular Exam Present: RRR, no murmur - Routine Abdominal Exam Present: soft, normoactive bowel sounds, non distended, non tender - Routine Extremities Exam Absent: cyanosis, clubbing, edema - Routine Back/Spine/Pelvis Exam Comments: Pain midthoracic to lower lumbar on palpation with intense tenderness right lumbar paraspinal muscles. - Routine Neurological Exam Present: alert, oriented X3, CN II-XII intact, sensory deficit (right lateral thigh with generalized loss of soft touch sensory.) Patient is of decreased strength in the right leg while sitting, with increased pain and decreased strength attempting to flex the right hip. She is able to bear weight on the leg however pain decreases her ability to walk or stay upright. - Routine Psychiatric Exam Present: normal affect, cooperative, good insight, good judgment. Absent: suicidal ideation, homicidal ideation, agitated IRU A/P (1) Weakness of extremity Current visit: Yes Status: Acute PT and OT to work with patient to increase stamina and strength of right leg. (2) Pain of back and right lower extremity Current visit: Yes Status: Acute PT and OT will request patient to increase mobility. Percocet 5 mg tablet, 1/2- 1 tablet prior to meals and at bedtime on a scheduled basis initially due to her requirement for IV pain medications up until now. Plan is to get her on a when necessary basis so that she can manage this at home on discharge. She doesn 't agreement with this plan. (3) Nontraumatic retroperitoneal hematoma Current visit: No Status: Acute Continue to follow INR per hospitalist. Physical therapy and occupational therapy will work to increase mobility and accelerated reabsorption of hematoma. DVT Prophylaxis: Coumadin Resuscitation Status: Full Code - Course Hospital Course: Yovani Armstrong MD: - Interventions to Obtain Goals PT Treatment Plan: Balance/Proprioception, Gait Training, Therapeutic Exercise, Ultrasound OT Treatment Plan: ADL (Basic Care), Balance Training, IADL, Pt./Family Education, Ther. Exercise for ADL
[2017-10-24 15:50] VITALS: BMI 26.6
--- NOTE | 2017-10-24 15:59 | IRU 24Hr Post Admit Eval ---
24 Hr Post Admission Physical - Relevant Changes Relevant Changes: No Reviewed: I have reviewed the patient's information and concur with the finding and results of the pre-admission screen. Certification: I certify the patient for rehabilitation. - Patient Condition (1) Weakness of extremity Status: Acute Code(s): R29.898 - Other symptoms and signs involving the musculoskeletal system Classification: Present on IRF Admission, IRF Tx That Should Address Diagnosis (2) Pain of back and right lower extremity Status: Acute Code(s): M54.9 - Dorsalgia, unspecified; M79.604 - Pain in right leg Classification: Present on IRF Admission, IRF Tx That Should Address Diagnosis (3) Nontraumatic retroperitoneal hematoma Status: Acute Code(s): K66.1 - Hemoperitoneum Classification: Present on IRF Admission, IRF Tx That Should Address Diagnosis, Diagnosis Requiring Medical Follow Up (4) Warfarin-induced coagulopathy Status: Acute Code(s): T45.511A - Poisoning by anticoagulants, accidental ( unintentional), initial encounter; D68.9 - Coagulation defect, unspecified Classification: Present on IRF Admission, Diagnosis Requiring Medical Follow Up - Prior Functional Status Lives With: Significant Other Residence Type: Apartment/Private Home Assitive Devices: None Prior Functional Status: Indep. at home or school - Current Functional Status Current Level of Function: Requiring assistance with walking. Please see PT and OT evaluation for full eval. This was reviewed. Patient Requirements: The patient requires oversight by rehabilitation physician to manage their rehabilitation treatment plan and multidisciplinary approach to care that can only be provided in an IRF and requires a multidisciplinary approach to care, provided by professional PTs, OTs, STs, dieticians, RTs, rehabilitation nurses and is not available in lesser levels of care. Limitations Req: ADL Impairment, Limited Mobility Physical Therapy Minutes: 90 Occupational Therapy Minutes: 90 Therapy: The patient is to receive therapy at least 5 days a week. ROM Deficit: Right Lower Extremity ROM Comment: Decreased range of motion right hip due to pain - Complications/Comorbidities Impact on Functional Outcomes: Cor physical therapy and occupational therapy support with more intense treatment that is possible as outpatient or skilled Barriers to Discharge: Weakness, Endurance, Pain Control - Impact of Co-morbidities on function Severity of retroperitoneal bleed certainly limit mobility and pain management. - Plan to Avoid Complications Plan to Avoid Complications: The patient cannot receive this care in a lesser intensive setting such as Nursing Home or Outpatient Therapy due to the patient requiring the following possibility of rebleed due to coagulopathy from Coumadin treatment. Also concern for possibility of fall or repeat injury due to weakness and pain in right leg..
[2017-10-24] MEDS: Oxycodone/Acetaminophen 5/325 1 TAB PO SCH ×2 (16:13→21:47)
[2017-10-24] MEDS ORDERED: FALL RISK - PHARMACY CONSULT MC ONE ×2 (16:52)
[2017-10-24] MEDS ORDERED: ONDANSETRON 4 MG/2 ML INJECTION IVP PRN (16:52)
[2017-10-24] MEDS ORDERED: NITROGLYCERIN 0.4 MG SUBLINGUAL TABLET SL PRN (16:52)
[2017-10-24] MEDS ORDERED: MORPHINE SULFATE 4mg INJECTION IVP PRN (16:52)
[2017-10-24] MEDS ORDERED: HYDRALAZINE 20 MG/ML INJECTION IVP PRN (16:52)
[2017-10-24] MEDS: CARVEDILOL 25 MG TABLET PO SCH (17:55)
[2017-10-24] MEDS: ATORVASTATIN 40 MG TABLET PO SCH (20:16)
[2017-10-24] MEDS: PYRIDOSTIGMINE 60 MG TABLET PO SCH (20:16)
[2017-10-24] MEDS: LATANOPROST 0.005% EYE DROPS 2.5ml EACH EYE SCH (20:17)
[2017-10-24] MEDS: ACETAMINOPHEN 500 MG TABLET PO PRN (20:19)
[2017-10-25] MEDS: Oxycodone/Acetaminophen 5/325 1 TAB PO SCH ×4 (06:15→21:42)
[2017-10-25] MEDS: SENNA + DOCUSATE TABLET PO SCH (08:52)
[2017-10-25] MEDS: SALINE FLUSH 10ml SYRINGE IVF PRN ×3 (08:52→21:43)
[2017-10-25] MEDS: PYRIDOSTIGMINE 60 MG TABLET PO SCH ×3 (08:53→21:42)
[2017-10-25] MEDS: POLYETHYL GLYCOL 3350 17gm PACKET PO SCH (08:53)
[2017-10-25] MEDS: CARVEDILOL 25 MG TABLET PO SCH ×2 (08:53→17:43)
--- NOTE | 2017-10-25 09:08 | Consult Note ---
Consult Information - Data of Consult Consult date: 10/25/17 Requesting Physician: Yovani Armstrong MD Primary Care Provider: Jacobo Perrin MD - Consult Narrative Reason for consult: medical management History of present illness: Patient is an 87-year-old female who was admitted through the emergency room on 10/22/17 due to increasing pain in her right hip and leg. CT of the lumbar spine and pelvis in the emergency room showed a large right retroperitoneal hemorrhage extending along the iliacus muscle. Her INR was supratherapeutic at 4.1. She was admitted to the medical floor, Coumadin was held and she was given vitamin K IV. Her INR normalized. Her hemoglobin dropped from 8.8 on admission to 7.6 at which time she was given 1 unit of PRBCs with improvement of hemoglobin to 9.2. She was transferred to IRU for strengthening and continued pain control yesterday. Patient was seen today eating breakfast. She reports that her pain has improved. Currently rates it at 4/10. She reports pain is worse with certain movements. Other than her pain, she denies other concerns. Her Coumadin remains on hold. Her hemoglobin this morning is 8.9. Past Medical History Medical History: Medical History (Last Updated 10/01/17 @ 13:49 by Maci Bland [facility]) Atrial dilatation CPAP/BiPAP dependence FH: HTN (hypertension) Medical History Updates: Atrial fibrillation. Hypertension. Sleep apnea-CPAP. Hyperlipidemia Surgical History: x 2. veins both legs. bunionectomy b/l. cataract. laser surgery for glaucoma: September & October 2016. Numerous surgeries for hammertoes. Bilateral TKA. Tonsillectomy and adenoidectomy Family History: Family History Father Heart attack Mother Heart attack Paternal Grandmother Gallbladder cancer Maternal Grandfather Heart disease Paternal Grandfather Heart disease Family History: As Above - Social History Smoking status: Never smoker Substance use type: does not use Alcohol intake frequency: does not drink Housing: other (independent living at [place]) Household members: spouse Current occupational status: retired Previous occupational history: office clerk assistant Social history: PCP-Dr. Jacobo Perrin Review of Systems All systems PM: 10-point ROS was reviewed, no additional remarkable complaints except (right hip/buttock/leg pain) Medications Home Medications Medication Instructions Recorded Confirmed Type Atorvastatin Calcium 40 mg PO HS #0 05/21/16 10/24/17 History Cholecalciferol [Vit. D-3] 1,000 unit PO DAILY #0 05/21/16 10/24/17 History NIFEdipine [Afeditab Cr] 30 mg PO PM #0 05/21/16 10/24/17 History Nitroglycerin 0.4 mg SL Q5MIN PRN #0 05/21/16 10/24/17 History Warfarin Sodium 4 mg PO MOTH #0 05/21/16 10/24/17 History Acetaminophen [Pain Relief] 500 mg PO Q6H 10/22/17 10/24/17 History Calcium Citrate 1,200 mg PO DAILY 10/22/17 10/24/17 History Carvedilol 25 mg PO BID 10/22/17 10/24/17 History Fesoterodine SR [Toviaz] 4 mg PO AM 10/22/17 10/24/17 History Latanoprost 1 drop EACH EYE HS 10/22/17 10/24/17 History Pyridostigmine [Mestinon] 60 mg PO TID 10/22/17 10/24/17 History Vitamin B Complex [Super B-50 1 each PO DAILY 10/22/17 10/24/17 History Complex] Warfarin [Coumadin] 3 mg PO SUTUWEFRSA 10/22/17 10/24/17 History hydroCHLOROthiazide 25 mg PO MOWEFR 10/22/17 10/24/17 History [Hydrochlorothiazide] Allergies Allergy/AdvReac Type Severity Reaction Status Date / Time meloxicam Allergy Unknown Verified 10/24/17 16:50 aspirin AdvReac Intermediate BLEEDING Verified 10/24/17 16:50 STOMACH codeine AdvReac Intermediate STOMACH Verified 10/24/17 16:50 ACHE lisinopril AdvReac Mild COUGH Verified 10/24/17 16:50 Sulfa (Sulfonamide AdvReac Mild UPSET Verified 10/24/17 16:50 Antibiotics) STOMACH acetaminophen AdvReac Unknown N/V Verified 10/24/17 16:50 hydrocodone AdvReac Unknown N/V Verified 10/24/17 16:50 Exam Vital Signs: Temperature 99.0 F 10/24/17 20:45 Pulse Rate 76 10/24/17 21:47 Respiratory Rate 20 10/24/17 21:47 Blood Pressure 151/60 H 10/24/17 20:45 Pulse Oximetry 97 10/24/17 21:47 Height/Weight/BMI: Height 1.7 m Weight 77.2 kg Body Mass Index 26.6 - Constitutional Present: no acute distress, well nourished, well developed - Routine HEENT Exam Head: Present: normocephalic, atraumatic Eye: Present: EOMI - Routine Respiratory Exam Present: CTA bilaterally. Absent: wheezes - Routine Cardiovascular Exam Present: RRR, no murmur - Routine Abdominal Exam Present: soft, normoactive bowel sounds. Absent: tenderness, distended - Routine Extremities Exam Present: no edema, normal capillary refill - Routine Back/Spine/Pelvis Exam Comments: No tenderness with palpation over the right hip, buttock or leg. Pain is only with movement - Routine Skin Exam Present: dry, warm - Routine Neurological Exam Present: alert, oriented X3, CN II-XII intact - Routine Psychiatric Exam Present: normal affect, cooperative Results - Labs CBC & Chem 7: 10/25/17 04:44 10/25/17 04:44 Assessment and Plan (1) Nontraumatic retroperitoneal hematoma Current visit: No Status: Acute (2) Warfarin-induced coagulopathy Current visit: No Status: Acute (3) Weakness of extremity Current visit: Yes Status: Acute (4) Pain of back and right lower extremity Current visit: Yes Status: Acute Assessment and Plan: Assessment Large right retroperitoneal hemorrhage extending along the iliacus muscle (8.5 x 6.3 cm) Chronic anticoagulation with supratherapeutic INR on admission to medical floor (4.1) - currently on hold Atrial fibrillation Hypertension-with elevated blood pressure as high as 230 systolic requiring when necessary hydralazine IV Sleep apnea-CPAP Hyperlipidemia Overactive Bladder Mestinon tx per Dr. Cantu for weakness and memory loss Plan Agree with admission to IRU for further strengthening and pain control. Continue to hold Coumadin. Hemoglobin is stable. Continue to monitor. Care to return to Dr. Perrin on dismissal. Hospitalist service will continue to follow patient throughout her stay. Thanks for the consult. DVT Prophylaxis: SCD's Resuscitation Status: Full Code - Physician Narrative Physician: Brianda Mcduffie MD Narrative: Date: 10/25/17 Time: 2004 I have independently evaluated and examined this patient. I reviewed the chart, the patient's history, and the BUSINESS OFFICE TECHNOLOGY INSTRUCTOR/PA's documented findings as above. We discussed and formulated the assessment and plan as above with additions as below: Mrs. Perrin was seen midafternoon at which time she reported ambulating from her room to the dining area using her walker earlier today; she still has moderate pain in the right hip with weightbearing but was able to participate in all therapies today. She denies dyspnea or palpitations. Regular cardiac rhythm with occasional ectopic beats Respirations nonlabored Bruising along the right flank extending to the lower ribs Anticoagulation discussed with Dr. Kian Fermin-given spontaneous retroperitoneal hematoma requiring transfusion he recommended discontinuation of warfarin long-term; will monitor on telemetry over the weekend after therapy tomorrow morning. Was in sinus rhythm while on the acute service. If anticoagulation to be resumed would recommend NOAC. Will CT abdomen/pelvis early next week to reevaluate hematoma and to better evaluate right kidney to exclude mass at may have contributed to spontaneous bleed. Hospital Course Summary Disclaimer: The visit summary below is not to be considered part of the above Progress Note.
--- NOTE | 2017-10-25 13:53 | IRU Plan of Care ---
IRU Overall Plan of Care - Date Date: 10/25/17 - Patient Impairments (1) Weakness of extremity Code(s): R29.898 - Other symptoms and signs involving the musculoskeletal system Status: Acute Classification: Present on IRF Admission, IRF Tx That Should Address Diagnosis (2) Pain of back and right lower extremity Code(s): M54.9 - Dorsalgia, unspecified; M79.604 - Pain in right leg Status: Acute Classification: Present on IRF Admission, IRF Tx That Should Address Diagnosis (3) Nontraumatic retroperitoneal hematoma Code(s): K66.1 - Hemoperitoneum Status: Acute Classification: Present on IRF Admission, IRF Tx That Should Address Diagnosis, Diagnosis Requiring Medical Follow Up (4) Warfarin-induced coagulopathy Code(s): T45.511A - Poisoning by anticoagulants, accidental (unintentional), initial encounter; D68.9 - Coagulation defect, unspecified Status: Acute Classification: Present on IRF Admission, Diagnosis Requiring Medical Follow Up - Relevant Changes Relevant Changes: No Reviewed: I have reviewed the patient's information and concur with the finding and results of the pre-admission screen. Certification: I certify the patient for rehabilitation. - Medical Prognosis Medical Prognosis: Good Vital Signs: Last Vital Signs Temp 98.7 F 10/25/17 08:50 Pulse 67 10/25/17 08:50 Resp 16 10/25/17 08:50 BP 135/54 10/25/17 08:50 Pulse Ox 98 10/25/17 08:50 - Anticipated Interventions Anticipated Interventions: The patient requires inpatient IRF care for PT, OT, and/or ST for residuals remaining from [iliopsoas bleed and pain] resulting in muscular weakness and strength deficits. ROM Deficit: Right Lower Extremity Strength Deficits: Right Lower Extremity - Current Functional Status Failed Alternative Therapy: Arrived from Acute Care Patient Requires: The patient requires oversight by rehabilitation physician to manage their rehabilitation treatment plan and multidisciplinary approach to care that can only be provided in an IRF and requires a multidisciplinary approach to care, provided by professional PTs, OTs, STs, rehabilitation nurses, and may require STs, dieticians, and RTS. This is not available in lesser levels of care. Physical Therapy Minutes: 90 Occupational Therapy Minutes: 90 Therapy: The patient is to receive therapy at least 5 days a week. - Anticipated LOS/Outcomes Anticipated Functional Outcome: Increase in strength, return to normal function as pain is managed and balance improved. Anticipated Length of Stay (days): 14 (days) Anticipated DC Destination: Home, Self Penitentiary Safety Plan: The patient will be provided with the development of a Home Safety Plan for return to a home or home-like environment and and to ensure safety post discharge. - Plan to Avoid Complications Barriers to Attaining Goals: Weakness, Balance, Endurance, Pain Control Plan to Avoid Complications: The patient cannot receive this care in a lesser intensive setting such as [facility] or Outpatient Therapy due to the patient requiring the following intensive physical therapy and occupational therapy support to prevent injury on the lower recovery from significant iliopsoas bleed..
--- NOTE | 2017-10-25 13:57 | IRU Progress Note ---
- Subjective/Serverity of Illness Date: 10/25/17 Patient was working with physical therapy and occupational therapy today, did come out for meal. Pain at rest is minimal, worse with movement. However she is committed to cooperating with physical therapy occupational therapy and increasing strength despite her pain. Exam Vital Signs: Temperature 98.7 F 10/25/17 08:50 Pulse Rate 67 10/25/17 08:50 Respiratory Rate 16 10/25/17 08:50 Blood Pressure 135/54 10/25/17 08:50 Pulse Oximetry 98 10/25/17 08:50 Height/Weight/BMI: Height 1.7 m Weight 78.4 kg Body Mass Index 26.6 - Constitutional Present: no acute distress - Routine HEENT Exam Head: Present: normocephalic Eye: Present: EOMI, PERRL - Routine Respiratory Exam Present: CTA bilaterally. Absent: dyspnea, wheezes, crackles - Routine Cardiovascular Exam Present: RRR, S1, S2, no murmur - Routine Abdominal Exam Present: soft, normoactive bowel sounds, non tender - Routine Extremities Exam Absent: cyanosis, clubbing, edema - Routine Back/Spine/Pelvis Exam Comments: Minimal tenderness right lumbar spinal paraspinal muscles. However patient has significant pain in this area with flexion or rotation of the back - Routine Neurological Exam Present: alert, oriented X3, CN II-XII intact. Absent: sensory deficit, motor deficit IRU A/P (1) Weakness of extremity Current visit: Yes Status: Acute Physical therapy and occupational therapy will work with the patient to increase strength and endurance. Patient is cooperative with this. (2) Pain of back and right lower extremity Current visit: Yes Status: Acute Oxycodone is ordered for pain management as needed. She is doing well at this time. (3) Nontraumatic retroperitoneal hematoma Current visit: No Status: Acute Managed by hospitalist service. (4) Warfarin-induced coagulopathy Current visit: No Status: Acute Managed by hospitalist service. (5) Anemia Qualifiers: Anemia type: other cause Other causes of anemia: acute posthemorrhagic Qualified Code(s): D62 - Acute posthemorrhagic anemia Current visit: Yes Status: Acute Managed by hospitalist service DVT Prophylaxis: Coumadin Resuscitation Status: Full Code - Course Hospital Course: Yovani Armstrong MD: - Interventions to Obtain Goals PT Treatment Plan: Balance/Proprioception, Electrical Stimulation, Functional Activities, Hot/Cold Pack, Gait Training, Manual Therapy, Patient/Family Education, Soft Tissue Massage, Therapeutic Exercise, Ultrasound OT Treatment Plan: ADL (Basic Care), Balance Training, IADL, Pt./Family Education, Ther. Exercise for ADL
[2017-10-25] MEDS: ATORVASTATIN 40 MG TABLET PO SCH (21:42)
[2017-10-25] MEDS: LATANOPROST 0.005% EYE DROPS 2.5ml EACH EYE SCH (21:43)
[2017-10-26] MEDS: ACETAMINOPHEN 500 MG TABLET PO PRN (00:59)
[2017-10-26] MEDS: Oxycodone/Acetaminophen 5/325 1 TAB PO SCH ×4 (06:22→23:41)
[2017-10-26] MEDS: PYRIDOSTIGMINE 60 MG TABLET PO SCH ×3 (08:50→21:45)
[2017-10-26] MEDS: CARVEDILOL 25 MG TABLET PO SCH ×2 (08:50→17:46)
[2017-10-26] MEDS: POLYETHYL GLYCOL 3350 17gm PACKET PO SCH (08:55)
[2017-10-26] MEDS: SENNA + DOCUSATE TABLET PO SCH (08:55)
[2017-10-26] MEDS: ATORVASTATIN 40 MG TABLET PO SCH (21:40)
[2017-10-26] MEDS: LATANOPROST 0.005% EYE DROPS 2.5ml EACH EYE SCH (21:41)
[2017-10-26] MEDS: SALINE FLUSH 10ml SYRINGE IVF PRN (21:57)
[2017-10-27] MEDS: Oxycodone/Acetaminophen 5/325 1 TAB PO SCH ×4 (06:02→21:56)
[2017-10-27] MEDS: CARVEDILOL 25 MG TABLET PO SCH ×2 (08:35→17:19)
[2017-10-27] MEDS: SENNA + DOCUSATE TABLET PO SCH (08:36)
[2017-10-27] MEDS: PYRIDOSTIGMINE 60 MG TABLET PO SCH ×3 (08:36→21:56)
[2017-10-27] MEDS: SALINE FLUSH 10ml SYRINGE IVF PRN ×2 (08:36→22:01)
[2017-10-27] MEDS: POLYETHYL GLYCOL 3350 17gm PACKET PO SCH (08:36)
--- NOTE | 2017-10-27 18:50 | Progress Note ---
- Date 10/27/17 Subjective: Mrs. Perrin was resting comfortably after dinner when seen. She reports some increased discomfort in the medial aspect of her thigh and bruising is extending into the upper thigh both medial and laterally. She has been ambulating more the past couple of days and denies lightheadedness or dyspnea. Objective Vital signs: Temperature 97.7 F 10/27/17 16:00 Pulse Rate 62 10/27/17 16:00 Respiratory Rate 16 10/27/17 16:00 Blood Pressure 157/59 H 10/27/17 16:00 Pulse Oximetry 96 -RA 10/27/17 16:00 NAD, alert, fluent speech Respirations nonlabored, good airflow, breath sounds clear although only upper posterior lung hdz auscultated Regular rhythm, S1-S2 Abdomen soft Height/Weight/BMI: Height 1.7 m Weight 79.2 kg Body Mass Index 26.6 Results - Labs CBC & Chem 7: 10/26/17 04:52 10/25/17 04:44 Assessment and Plan (1) Nontraumatic retroperitoneal hematoma Current visit: No Status: Acute (2) Warfarin-induced coagulopathy Current visit: No Status: Acute (3) Weakness of extremity Current visit: Yes Status: Acute (4) Pain of back and right lower extremity Current visit: Yes Status: Acute Assessment and Plan: Assessment Large right retroperitoneal hemorrhage extending along the iliacus muscle (8.5 x 6.3 cm) Chronic anticoagulation with supratherapeutic INR on admission to medical floor (4.1) - currently on hold Atrial fibrillation Hypertension-with elevated blood pressure as high as 230 systolic requiring when necessary hydralazine IV Sleep apnea-CPAP Hyperlipidemia Overactive Bladder Mestinon tx per Dr. Cantu for weakness and memory loss Plan Doing well; reassess hemoglobin in a.m. Previously discussed anticoagulation with patient's fabric worker foreman who recommended discontinuation of warfarin due to spontaneous bleed. Has been in sinus rhythm since hospitalization-EKG in a.m. to confirm that the same continues. Repeat CT abdomen/pelvis to evaluate hematoma and to exclude evidence of renal pathology. Hemoglobin in a.m. Blood pressure remains slightly elevated but improved from initial readings- increase nifedipine to 60 mg at bedtime. - Physician Narrative Narrative: Date: 10/27/17 Time: 184 Hospital Course Summary Disclaimer: The visit summary below is not to be considered part of the above Progress Note. Hospital Course: 10/27/17 Doing well; reassess hemoglobin in a.m. Previously discussed anticoagulation with patient's fabric worker foreman who recommended discontinuation of warfarin due to spontaneous bleed. Has been in sinus rhythm since hospitalization-EKG in a.m. to confirm that the same continues. Repeat CT abdomen/pelvis to evaluate hematoma and to exclude evidence of renal pathology. Hemoglobin in a.m. Blood pressure remains slightly elevated but improved from initial readings- increase nifedipine to 60 mg at bedtime.
[2017-10-27] MEDS: ATORVASTATIN 40 MG TABLET PO SCH (21:55)
[2017-10-27] MEDS: LATANOPROST 0.005% EYE DROPS 2.5ml EACH EYE SCH (21:55)
[2017-10-28] MEDS: Oxycodone/Acetaminophen 5/325 1 TAB PO SCH ×4 (05:37→21:34)
[2017-10-28] MEDS: SALINE FLUSH 10ml SYRINGE IVF PRN (08:41)
[2017-10-28] MEDS: POLYETHYL GLYCOL 3350 17gm PACKET PO SCH (08:41)
[2017-10-28] MEDS: PYRIDOSTIGMINE 60 MG TABLET PO SCH ×3 (08:41→17:32)
[2017-10-28] MEDS: SENNA + DOCUSATE TABLET PO SCH (08:41)
[2017-10-28] MEDS: CARVEDILOL 25 MG TABLET PO SCH ×2 (08:42→17:32)
[2017-10-28] MEDS ORDERED: MORPHINE SULFATE 4mg INJECTION IVP PRN (09:00)
--- NOTE | 2017-10-28 09:41 | CT Scan Report ---
EXAM: CT abdomen pelvis without contrast DATE: LOCATION OF DICTATION: [place] HISTORY: retroperitoneal hematoma, eval for renal pathology COMPARISON: October 22, 2017. TECHNIQUE: Multiple contiguous axial images were obtained of the abdomen and pelvis without contrast. Coronal and sagittal reformations were utilized. Automated Exposure Control and Iterative Reconstruction dose reducing techniques were utilized. PROCEDURE: Axial images were obtained throughout the entire abdomen and pelvis without contrast administration. FINDINGS: CT ABDOMEN LUNG BASES: Mild dependent atelectasis. The lung bases are otherwise clear. The heart is mildly enlarged. There is moderate calcific atherosclerotic disease of the thoracic aorta and coronary arteries. LIVER: Unremarkable. SPLEEN: Unremarkable. GALLBLADDER: Unremarkable. PANCREAS: Unremarkable. ADRENAL GLANDS: Unremarkable. KIDNEYS: Unremarkable. AORTA: Moderate calcific atherosclerotic disease of the aorta and iliac arteries. LYMPH NODES: Unremarkable. STOMACH BOWEL LOOPS: There is moderate fecal retention. There is no evidence for bowel obstruction or free air. PERITONEAL CAVITY: There is a large retroperitoneal hematoma demonstrated on the right side currently measuring 8.9 x 6.9 cm. This compares to the previous study dated October 22, 2017 at which time measured 9.8 x 6.9 cm and is therefore slightly decreased in size. CT PELVIS URINARY BLADDER: Unremarkable. UTERUS/OVARIES: Unremarkable. 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 Moderate spondylosis of the visualized lower lumbar spine. IMPRESSION: 1. Slight interval decrease in size of large right-sided retroperitoneal/iliopsoas hematoma. 2. 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 3. Moderate fecal retention. 4. Mild cardiomegaly. .
--- NOTE | 2017-10-28 11:10 | IRU Progress Note ---
- Subjective/Serverity of Illness Date: 10/28/17 I interviewed and examined Mrs. Perrin this morning in her room on acute inpatient rehabilitation. She presented with a 4-5 day history of increasing pain in the right flank and right hip area. She initially had been seen by someone in Dr. Perrin's office and subsequently presented to the emergent department on 10/22/2017 with severe pain in the right flank and hip. It was a 10 out of [address] scan revealed what appeared to be a spontaneous, non-traumatic right iliopsoas hematoma. There was a concern for active bleeding. Her INR was elevated at 4.3. Her hemoglobin was down at 8.8. It is uncertain what her chronic hemoglobin is but most recent one available is from 2016 and was relatively normal at around 12 g percent. She was admitted to the [facility] on 10/22/2017 by the hospitalist service. She was stabilized. She did have significantly elevated blood pressures requiring hydralazine intravenously. Blood pressures were up into the 230 range for a time. She had evidence of acute blood loss anemia with hemoglobin initially 8.8 dropping to a low of 7.6. She received 1 unit of packed red blood cells while on acute care with hemoglobin rising to 9.2. He currently is down to 7.9. She does have some bruising but otherwise no evidence of active bleeding. Her warfarin has been held at the present time with most recent INR 1.2. Her blood pressures remain elevated but are improved. She was transferred to inpatient rehabilitation on 10/24/2017 because of development of multiple functional deficits. Her pain continues to be an issue with regard to the right flank and right hip area. There is no report of any evidence of falling or trauma. From a functional standpoint, the patient lived in her own home/apartment with her in [place]. She prepares their own meals. She does walk with a 4 wheeled walker at home. She was quite active and independent at home otherwise. Mentally she is quite sharp. Medical issues we have identified and will be actively monitoring and managing are as follows: 1. Acute right iliopsoas nontraumatic hematoma/hemorrhage with pain in the right hip area. Repeat CT scan shows improvement in the right iliopsoas hematoma area. 2. Acute blood loss anemia secondary to the above. Hemoglobin slightly down now at 7.9. She has received 1 unit of packed red blood cells while on acute. 3. Atrial fibrillation: This appears to be permanent. 4. Recent slightly supratherapeutic INR now subtherapeutic with Coumadin having been held. 5. Benign essential hypertension with recent exacerbation. Blood pressures were quite high while on acute at 230. At present they are improved but still elevated around 170. Exam Vital Signs: Temperature 98.0 F 10/28/17 08:00 Pulse Rate 63 10/28/17 08:00 Respiratory Rate 16 10/28/17 08:00 Blood Pressure 173/65 H 10/28/17 08:00 Pulse Oximetry 97 10/28/17 08:00 Height/Weight/BMI: Height 1.7 m Weight 79.2 kg Body Mass Index 26.6 - Constitutional Present: mild distress, well nourished, well developed, average body habitus, cooperative - Routine HEENT Exam Head: Present: normocephalic Eye: Present: EOMI ENT: Present: mucous membranes moist, oropharynx clear - Routine Respiratory Exam Present: CTA bilaterally. Absent: wheezes - Routine Cardiovascular Exam Present: S1, S2, murmur, irregularly irregular - Routine Abdominal Exam Present: soft, normoactive bowel sounds, non distended. Absent: tenderness Comments: Ecchymosis noted in the right groin and lower abdominal area. Abdomen is soft and nontender however. - Routine Extremities Exam Present: no edema, normal capillary refill - Routine Skin Exam Present: dry, warm - Routine Neurological Exam Present: alert, oriented X3, CN II-XII intact - Routine Psychiatric Exam Present: normal affect, normal thought process, cooperative, good insight, good judgment Results IRU - Labs Labs: I reviewed other providers notes as well as laboratory findings and vital signs etc. Reviewed his CT scan reports etc. IRU A/P (1) Nontraumatic retroperitoneal hematoma Current visit: No Status: Acute This patient sustained a nontraumatic right retroperitoneal hematoma with iliopsoas involvement. Repeat CT scan shows some improvement. She continues to struggle with pain management. She is cooperative with therapy. (2) Acute blood loss anemia Current visit: Yes Status: Acute She has received 1 unit of packed red blood cells while on acute care. Hemoglobin slightly trending downwards at 7.9 at present. There is some evidence of ecchymoses in the anterior abdominal wall down low. (3) Benign essential hypertension Current visit: Yes Status: Chronic Blood pressure was quite high upon admission likely related to pain. It is improved although still runs a bit high at 170 or so systolic. Management per hospitalist service. (4) Atrial fibrillation Qualifiers: Atrial fibrillation type: permanent Qualified Code(s): I48.2 - Chronic atrial fibrillation Current visit: Yes Status: Chronic Patient states that she has had atrial fibrillation for a number of years and has been on warfarin for some time. Her INR was somewhat supratherapeutic at the time of admission. Iliopsoas hematoma is a known complication of warfarin therapy and she deathly does need to be on this one her bleeding stabilized. Currently she is asymptomatic with regard to the atrial fibrillation. (5) Warfarin-induced coagulopathy Current visit: No Status: Resolved Warfarin has been held at the present time. DVT Prophylaxis: SCD's Resuscitation Status: Full Code - Course Hospital Course: Yovani Armstrong MD: 10/28/17 11:14 Patient is cooperative with therapy. Hemoglobin down to 7.9. INR 1.2 at last check. Warfarin continues to be held. Does have pain in the right hip area related to the iliopsoas hematoma presumptively. - Interventions to Obtain Goals PT Treatment Plan: Balance/Proprioception, Electrical Stimulation, Functional Activities, Hot/Cold Pack, Gait Training, Manual Therapy, Patient/Family Education, Soft Tissue Massage, Therapeutic Exercise, Ultrasound OT Treatment Plan: ADL (Basic Care), Balance Training, IADL, Pt./Family Education, Ther. Exercise for ADL Goals Progress/Modifications: Patient is cooperative with therapy and is just getting started with therapy. She was quite functional at home prior to this. She does walk with a walker at home but was able to prepare her own meals, care for herself etc. She lives in her own home with her in [place]. She does have multiple medical problems. We will continue to monitor her hemoglobin carefully as it has fallen down to 7.9 from 8.1. She does have a small area of ecchymoses in the right groin area. In addition we will start iron therapy after checking iron levels.
[2017-10-28] MEDS: LATANOPROST 0.005% EYE DROPS 2.5ml EACH EYE SCH (21:35)
[2017-10-28] MEDS: ATORVASTATIN 40 MG TABLET PO SCH (21:35)
[2017-10-29] MEDS: Oxycodone/Acetaminophen 5/325 1 TAB PO SCH (06:23)
[2017-10-29] MEDS: FERROUS SULFATE 324 MG TABLET PO SCH (08:35)
[2017-10-29] MEDS: PYRIDOSTIGMINE 60 MG TABLET PO SCH ×3 (08:35→17:43)
[2017-10-29] MEDS: SENNA + DOCUSATE TABLET PO SCH ×2 (08:36→08:39)
[2017-10-29] MEDS: CARVEDILOL 25 MG TABLET PO SCH ×2 (08:36→17:43)
[2017-10-29] MEDS: POLYETHYL GLYCOL 3350 17gm PACKET PO SCH (08:37)
[2017-10-29] MEDS: Oxycodone/Acetaminophen 5/325 1 TAB PO PRN ×2 (10:51→21:38)
--- NOTE | 2017-10-29 10:51 | IRU Progress Note ---
- Subjective/Serverity of Illness Date: 10/29/17 Marylin was interviewed and examined in her room on acute inpatient rehabilitation. Her exercise tolerance is improved she states. She can reach down and do lower extremity dressing more easily. She reports she continues to have pain in the right groin and flank. Has difficulty raising the right leg in the sitting position. Can easily raise the left leg. Her hemoglobin is improved at 9.0 g percent. Patient was advised. She does not have evidence of further bleeding although continues to have ecchymoses in the lower abdomen as before. Her abdomen is soft. Her appetite is good. She is walking better. Her blood pressures remain a bit elevated but this may be related to pain etc. She does remain off of warfarin at present. Exam Vital Signs: Temperature 97.6 F 10/29/17 08:00 Pulse Rate 67 10/29/17 08:00 Respiratory Rate 16 10/29/17 08:00 Blood Pressure 151/65 H 10/29/17 08:00 Pulse Oximetry 95 10/29/17 08:00 Height/Weight/BMI: Height 1.7 m Weight 79 kg Body Mass Index 26.6 - Constitutional Present: mild distress (right leg/groin discomfort), well nourished, well developed, average body habitus, cooperative - Routine HEENT Exam Head: Present: normocephalic Eye: Present: EOMI, PERRL ENT: Present: mucous membranes moist, oropharynx clear - Routine Neck Exam Present: supple - Routine Respiratory Exam Present: CTA bilaterally. Absent: wheezes - Routine Cardiovascular Exam Present: S1, S2, irregularly irregular. Absent: murmur - Routine Abdominal Exam Present: soft, normoactive bowel sounds, non distended. Absent: tenderness - Routine Extremities Exam Present: no edema, normal capillary refill - Routine Back/Spine/Pelvis Exam Back/Spine: Present: kyphosis (severe dorsal kyphosis) - Routine Skin Exam Present: dry, warm - Routine Neurological Exam Present: alert, oriented X3, CN II-XII intact, motor deficit (unable to lift left leg up off floor. However, seems to be related to pain rather than primarily to motor weakness although she states there is both.) - Routine Psychiatric Exam Present: normal affect, cooperative, good insight, good judgment Results IRU - Labs Labs: Reviewed all labs, other provider notes and chart data. IRU A/P (1) Nontraumatic retroperitoneal hematoma Current visit: No Status: Acute Continues to have pain and difficulty raising right leg also floor. However pain is improved. She is improving with therapy today. Her exercise tolerance is better. She does have improved range of motion. Hemoglobin is improved at 9.0 up from 7.9. No evidence of active bleeding. Remains off warfarin. (2) Acute blood loss anemia Current visit: Yes Status: Acute Hemoglobin improved at 9.0 g percent. It was 7.9. (3) Benign essential hypertension Current visit: Yes Status: Chronic Blood pressures are noted to be a bit elevated. This may be related to discomfort. She is on several antihypertensives. (4) Atrial fibrillation Qualifiers: Atrial fibrillation type: permanent Qualified Code(s): I48.2 - Chronic atrial fibrillation Current visit: Yes Status: Chronic DVT Prophylaxis: SCD's Resuscitation Status: Full Code - Course Hospital Course: Yovani Armstrong MD: 10/28/17 11:14 Patient is cooperative with therapy. Hemoglobin down to 7.9. INR 1.2 at last check. Warfarin continues to be held. Does have pain in the right hip area related to the iliopsoas hematoma presumptively. 10/29/17 10:52 Hemoglobin improved to 9.0. Improve range of motion. Continued pain and weakness right lower extremity likely related to ileal psoas hematoma. - Interventions to Obtain Goals PT Treatment Plan: Balance/Proprioception, Electrical Stimulation, Functional Activities, Hot/Cold Pack, Gait Training, Manual Therapy, Patient/Family Education, Soft Tissue Massage, Therapeutic Exercise, Ultrasound OT Treatment Plan: ADL (Basic Care), Balance Training, IADL, Pt./Family Education, Ther. Exercise for ADL Goals Progress/Modifications: Marylin is making progress with therapy. She has improved range of motion and improved ambulatory ability. Remains off warfarin. Her hemoglobin is improved at 9.0 g percent. Continues to have reduced range of motion and discomfort and pain in the right lower extremity likely related to her underlying iliopsoas hematoma. Continue to monitor carefully and continue therapy. Patient states that she believes she is nearing the time that she can go home safely. Team meeting today for a multidisciplinary approach
[2017-10-29] MEDS: ATORVASTATIN 40 MG TABLET PO SCH (21:34)
[2017-10-29] MEDS: LATANOPROST 0.005% EYE DROPS 2.5ml EACH EYE SCH (21:34)
[2017-10-30] MEDS: Oxycodone/Acetaminophen 5/325 1 TAB PO PRN ×3 (07:08→21:16)
[2017-10-30] MEDS: PYRIDOSTIGMINE 60 MG TABLET PO SCH ×3 (08:25→17:35)
[2017-10-30] MEDS: FERROUS SULFATE 324 MG TABLET PO SCH (08:25)
[2017-10-30] MEDS: CARVEDILOL 25 MG TABLET PO SCH ×2 (08:25→17:35)
[2017-10-30] MEDS: SENNA + DOCUSATE TABLET PO SCH (08:25)
[2017-10-30] MEDS: POLYETHYL GLYCOL 3350 17gm PACKET PO SCH (08:25)
--- NOTE | 2017-10-30 09:59 | IRU Progress Note ---
- Subjective/Serverity of Illness Date: 10/30/17 Marylin was interviewed and examined in her room on inpatient rehabilitation. She reports that she continues to make progress. She would like to switch to Eliquis if possible. Her family or she has this with Dr. Kian Fermin who is her maltster. She remains in atrial fibrillation clinically at least. She continues to have discomfort in the right lower extremity mainly in the right lateral lower extremity. Positive difficult to raise the right leg due to "weakness" as well as pain. Continues to have some ecchymosis noted in the right groin and pubic area. Her appetite is good. She is making functional gains. We did have a team meeting today and will discuss things from a multidisciplinary standpoint. Exam Vital Signs: Temperature 98.3 F 10/30/17 07:13 Pulse Rate 66 10/30/17 07:13 Respiratory Rate 16 10/30/17 07:13 Blood Pressure 142/62 H 10/30/17 07:13 Pulse Oximetry 97 10/30/17 07:13 Height/Weight/BMI: Height 1.7 m Weight 79.3 kg Body Mass Index 26.6 - Constitutional Present: mild distress (right leg), well nourished, well developed, cooperative - Routine HEENT Exam Eye: Present: EOMI ENT: Present: mucous membranes moist, oropharynx clear - Routine Respiratory Exam Present: CTA bilaterally. Absent: wheezes - Routine Cardiovascular Exam Present: S1, S2, murmur, irregularly irregular - Routine Abdominal Exam Present: soft, normoactive bowel sounds, non distended. Absent: tenderness - Routine Extremities Exam Present: edema (right thigh), normal capillary refill - Routine Skin Exam Present: dry, warm - Routine Neurological Exam Present: alert, oriented X3, CN II-XII intact - Routine Psychiatric Exam Present: normal affect, normal thought process, cooperative, good insight, good judgment IRU A/P (1) Nontraumatic retroperitoneal hematoma Current visit: No Status: Acute Clinically pain remains present primarily in the right lateral thigh area as well as in the right groin. She is making functional progress with regard to ambulation, transfers and ADLs. (2) Acute blood loss anemia Current visit: Yes Status: Acute His recent hemoglobin was improved at 9.0. We will reassess. (3) Benign essential hypertension Current visit: Yes Status: Chronic Blood pressures are trending downward with improvement in pain control. (4) Atrial fibrillation Qualifiers: Atrial fibrillation type: permanent Qualified Code(s): I48.2 - Chronic atrial fibrillation Current visit: Yes Status: Chronic Remains off warfarin. The patient would like to try an alternative such as a novel agent. Discussed this with her a bit today and I will discuss with the hospitalist service as well. DVT Prophylaxis: SCD's Resuscitation Status: Full Code - Course Hospital Course: Yovani Armstrong MD: 10/28/17 11:14 Patient is cooperative with therapy. Hemoglobin down to 7.9. INR 1.2 at last check. Warfarin continues to be held. Does have pain in the right hip area related to the iliopsoas hematoma presumptively. 10/29/17 10:52 Hemoglobin improved to 9.0. Improve range of motion. Continued pain and weakness right lower extremity likely related to ileal psoas hematoma. 10/30/17 10:00 She is making functional improvement. Continued pain and weakness in right lower extremity. Nearing the time when she can safely transition to her home environment. - Interventions to Obtain Goals PT Treatment Plan: Balance/Proprioception, Electrical Stimulation, Functional Activities, Hot/Cold Pack, Gait Training, Manual Therapy, Patient/Family Education, Soft Tissue Massage, Therapeutic Exercise, Ultrasound OT Treatment Plan: ADL (Basic Care), Balance Training, IADL, Pt./Family Education, Ther. Exercise for ADL Goals Progress/Modifications: There is some edema noted of the right thigh area. In addition she continues to have difficulty raising the right leg (flexing at right hip) due to "weakness" as well as pain. We will reassess her hemoglobin. She would like to try a novel agent in place of warfarin and she has visited with her maltster, Dr. Fermin in this regard. I will discuss with the hospitalist. Also discussed this with the patient with regard to risks as well as benefits.
--- NOTE | 2017-10-30 13:49 | IRU Team Meeting ---
IRU Team Meeting - Nursing Bladder Assistive Devices Utilized:: Medication, Absorbent Pad Bladder Management Level of Assist: Modified Independent Bladder Frequency of Accidents: No accidents Bowel Assistive Devices Utilized:: Medication, Absorbent Pad Bowel Management Level of Assist: Modified Independent Bowel Frequency of Accidents: No accidents Vital Signs: Vital Signs - 24 hr 10/29/17 16:00 10/29/17 20:44 10/30/17 07:13 Temperature 98.1 F 98.3 F Pulse Rate 68 66 Respiratory Rate 16 16 Blood Pressure 155/74 H 168/68 H 142/62 H Pulse Oximetry 94 97 Current Medications: Acetaminophen (Tylenol) 500 mg PO Q6H PRN PRN Reason: Pain Last Admin: 10/26/17 00:59 Dose: 500 mg Atorvastatin Calcium (Lipitor) 40 mg PO [facility] Last Admin: 10/29/17 21:34 Dose: 40 mg Carvedilol (Coreg) 25 mg PO BIDWM [facility] Last Admin: 10/30/17 08:25 Dose: 25 mg Ferrous Sulfate (Feosol) [address] [facility] Last Admin: 10/30/17 08:25 Dose: 324 mg Fesoterodine Fumarate (Toviaz) 4 mg PO DAILY [facility] Last Admin: 10/30/17 08:25 Dose: 4 mg Hydrochlorothiazide (Hydrodiuril) 25 mg PO [id number] [facility] Last Admin: 10/30/17 08:25 Dose: 25 mg Latanoprost (Xalatan) 1 drops EACH EYE [facility] Last Admin: 10/29/17 21:34 Dose: 1 drops Magnesium Hydroxide (Mom) 30 ml PO DAILY PRN PRN Reason: Constipation Nifedipine (Procardia Xl) 60 mg PO 1999 [facility] Last Admin: 10/29/17 21:33 Dose: 60 mg Nitroglycerin (Nitrostat) 0.4 mg SL Q5MIN PRN PRN Reason: Chest tightness Oxycodone/Acetaminophen (Percocet 5/325) 1 tab PO Q4H PRN PRN Reason: Pain Last Admin: 10/30/17 12:13 Dose: 1 tab Polyethylene Glycol (Miralax) 17 gm PO DAILY [facility] Last Admin: 10/30/17 08:25 Dose: 17 gm Pyridostigmine Hennessey (Mestinon) 60 mg PO TIDWM [facility] Last Admin: 05/02/18 12:13 Dose: 60 mg Senna/Docusate Sodium (Senna Plus Tablet) 1 tab PO DAILY [facility] Last Admin: 10/30/17 08:25 Dose: Not Given Sodium Chloride (Iv Flush) 10 - 80 ml IVF PRN PRN PRN Reason: Flushing Last Admin: 10/28/17 08:41 Dose: 10 ml Current Medical Issues: Recent retroperitoneal hemorrhage with hemorrhage into the iliopsoas muscle with subsequent pain in the right thigh, acute blood loss anemia, atrial fibrillation with warfarin currently being held. Comments: I certify that I personally led the interdisciplinary team meeting and agree with comments, barriers and goals indicated. Team meeting was held in the patient's room with the patient and the following family members present: Patient's , Patient's daughter Marylin is very cooperative. She remains on oxycodone for pain management. However it is been switched to as needed use only. Her bowels are moving. She continues to have discomfort in the right lower extremity from the ileo-psoas/ retroperitoneal bleed. She remains off Coumadin at present. Her hemoglobin is improved at 9.0. - Physical Therapy Bed, Chair, Wheelchair Transfer Assist: Stand By Assist/Supervision Ambulation Ability: Modified Independent Ambulation Distance: 175 Stair Climbing Ability: Stand By Assist/Supervision, Household Exception Number of Steps Climbed: 6 Car Transfer Ability: Stand By Assist/Supervision Comments: She is moving functioning well despite weakness in the right lower extremity. She does require additional time for bed mobility. Tinetti balance test will be performed today. - Occupational Therapy Eating Ability: Independent Grooming Ability: Independent Bathing Ability: Modified Independent Upper Body Dressing Ability: Independent Lower Body Dressing Ability: Modified Independent Tub Transfer Assist: Patient Refuses Toileting Assist: Modified Independent Toilet Transfer Assist: Modified Independent Comments: She has done very well with occupational therapy. Small meal preparation will be worked on today. - Goals Physical Therapy Goals: 10/30/17: 1.) on Tinetti Balance Assessment. 2.) Discharge Planning Occupational Therapy Goals: OT goals 10/30/17: 1.) Meal preparation with modified independence. 2.) Discharge planning - Barriers to Discharge Barriers to Attaining Goals: Weakness (progressive resistive therapeutic exercises provided.) - Care Plan Anticipated Length of Stay (days): 1 (days) Anticipated DC Destination: Home, Self Care, Home Health Service I have led this team conference and agree with the plan. Interventions/Goals: Patient has a few more goals to achieve and it is anticipated she will be stable for dismissal tomorrow, 10/31/2017. She will be going home with home health. She does have good family support.
--- NOTE | 2017-10-30 14:29 | Progress Note ---
- Date 10/30/17 Subjective: Marylin overall is feeling much better. Her pain is under adequate control on Percocet. She has noticed, however, increased swelling to her right thigh over the last 2 days. She states that the bruising has traveled down her leg. She denies any chest pain, weakness, dizziness, lightheadedness, or dyspnea. No n/ v. Her bowels have been moving. Objective Vital signs: Temperature 98.3 F 10/30/17 07:13 Pulse Rate 66 10/30/17 07:13 Respiratory Rate 16 10/30/17 07:13 Blood Pressure 142/62 H 10/30/17 07:13 Pulse Oximetry 97 10/30/17 07:13 Height/Weight/BMI: Height 1.7 m Weight 79.3 kg Body Mass Index 26.6 - Constitutional Present: no acute distress, well nourished, well developed - Routine HEENT Exam Head: Present: normocephalic Eye: Present: PERRL. Absent: conjunctival icterus, scleral injection - Routine Respiratory Exam Present: CTA bilaterally - Routine Cardiovascular Exam Present: RRR, S1, S2 - Routine Abdominal Exam Present: soft, normoactive bowel sounds, non distended, non tender - Routine Extremities Exam Present: edema (Rt thigh), pulses intact - Routine Musculoskeletal Exam Musculoskeletal: Present: moving extremities well - Routine Skin Exam Present: intact, dry, warm, ecchymosis (Rt flank) - Routine Neurological Exam Present: alert, oriented X3, moving all extremities, normal speech - Routine Psychiatric Exam Present: normal affect, normal thought process, cooperative Results - Labs CBC & Chem 7: 10/29/17 04:32 10/28/17 04:19 Assessment and Plan (1) Nontraumatic retroperitoneal hematoma Current visit: No Status: Acute (2) Weakness of extremity Current visit: Yes Status: Acute (3) Pain of back and right lower extremity Current visit: Yes Status: Acute Assessment and Plan: Assessment Large right retroperitoneal hemorrhage extending along the iliopsoas muscle ( 8.5 x 6.3 cm) Chronic anticoagulation with supratherapeutic INR on admission to medical floor (4.1) - currently on hold Atrial fibrillation Hypertension-with elevated blood pressure as high as 230 systolic requiring when necessary hydralazine IV Sleep apnea-CPAP Hyperlipidemia Overactive Bladder Mestinon tx per Dr. Cantu for weakness and memory loss Plan Rt leg swelling - venous doppler ordered. D/W Dr. Munguia - start Eliquis tonight, 5 mg BID. Repeat CBC in am. CM running costs of Rx with [facility]. BP responded well to increased nifedipine dose. Plan on discharge home tomorrow with HH. Resuscitation Status: Full Code - Physician Narrative Physician: Alice Munguia MD Narrative: Date: 10/30/17 Time: 1700 Ms. Perrin was independently interviewed and examined by me. She is currently getting her ultrasound of the right lower extremity. She reports feeling better. Her pain is controlled. She denies any fever or chills. She denies any shortness of breath. She denies any chest pain or pressure. She denies palpitations. She denies any nausea, vomiting, diarrhea or constipation. PE: Gen: alert and oriented. NAD Skin: warm and dry HEENT: NC/AT PERRL, EOMI, Sclera, lids and conjunctiva wnl, MMM, OP clear Neck: supple. No JVD, Carotids 2+ without bruits. Lungs: clear, No rales, rhonchi, wheezes. CV: regular. No murmur, rub or gallop Abd: soft. NT/ND, +BS MS: Mild edema RLE. Good strength and ROM. Neuro: No focal deficit Psy: normal mood and affect A/P Large right iliopsoas muscular hematoma -Hgb stable -Started on Eliquis -Follow bleeding site and Hgb. Atrial fibrillation -Eliquis started Hypertension -Not controlled on current medications -Will start losartan Sleep apnea -CPAP Hyperlipidemia -On Lipitor Overactive Bladder -On Toviaz Right leg swelling -No evidence of DVT Mestinon tx per Dr. Cantu for weakness and memory loss Plan on discharge home tomorrow with HH. Resuscitation Status: Full Code I have reviewed the patient's labs, notes and imaging. The patient's assessment and plan was discussed at length with Christal Crandall APRN. I agree with plan as documented above with changes I have indicated above. Hospital Course Summary Disclaimer: The visit summary below is not to be considered part of the above Progress Note. Hospital Course: 10/27/17 Doing well; reassess hemoglobin in a.m. Previously discussed anticoagulation with patient's sample hand who recommended discontinuation of warfarin due to spontaneous bleed. Has been in sinus rhythm since hospitalization-EKG in a.m. to confirm that the same continues. Repeat CT abdomen/pelvis to evaluate hematoma and to exclude evidence of renal pathology. Hemoglobin in a.m. Blood pressure remains slightly elevated but improved from initial readings- increase nifedipine to 60 mg at bedtime. 10/30/17 Rt leg swelling - venous doppler ordered. D/W Dr. Munguia - start Eliquis tonight, 5 mg BID. Repeat CBC in am. CM running costs of Rx with [facility]. BP responded well to increased nifedipine dose. Plan on discharge home tomorrow with .
--- NOTE | 2017-10-30 16:23 | Ultrasound Report ---
Indication: Rt leg swelling PROCEDURE: US venous doppler LE RT: Encounter: Initial Comparison: None Technique: Color Doppler duplex and grayscale sonographic imaging of the right lower extremity was performed. Findings: There is no evidence for acute deep venous thrombosis in the right thigh. Specifically, serial graded compression was performed from the inguinal ligament to the popliteal bifurcation, on the right thigh, demonstrating appropriate compressibility of the deep venous system. In addition, color and pulsed Doppler demonstrate appropriate spontaneous flow, variation with respiration, and augmentation with calf compression. At the ankle, normal flow is identified in the posterior tibial veins; these vessels are also normal in caliber. Impression: No evidence of acute DVT in the right lower limb. .
[2017-10-30] MEDS: LOSARTAN 50 MG TABLET PO SCH (17:35)
[2017-10-30] MEDS: APIXABAN 5 MG TABLET PO SCH (21:12)
[2017-10-30] MEDS: ATORVASTATIN 40 MG TABLET PO SCH (21:12)
[2017-10-30] MEDS: LATANOPROST 0.005% EYE DROPS 2.5ml EACH EYE SCH (21:14)
[2017-10-30 21:22] VITALS: RESP 16
[2017-10-31] MEDS: Oxycodone/Acetaminophen 5/325 1 TAB PO PRN ×2 (06:43→13:49)
[2017-10-31 08:34] VITALS: BP 156/65; PULSE 59; TEMP 98.3; O2SAT 99
[2017-10-31] MEDS: LOSARTAN 50 MG TABLET PO SCH (08:39)
[2017-10-31] MEDS: PYRIDOSTIGMINE 60 MG TABLET PO SCH ×2 (08:39→12:04)
[2017-10-31] MEDS: SENNA + DOCUSATE TABLET PO SCH (08:40)
[2017-10-31] MEDS: FERROUS SULFATE 324 MG TABLET PO SCH (08:40)
[2017-10-31] MEDS: APIXABAN 5 MG TABLET PO SCH (08:40)
[2017-10-31] MEDS: CARVEDILOL 25 MG TABLET PO SCH (08:40)
[2017-10-31] MEDS: POLYETHYL GLYCOL 3350 17gm PACKET PO SCH (08:40)
--- NOTE | 2017-11-01 15:04 | Discharge Summary ---
Discharge Information Date of admission: 10/24/17 14:25 Anticipated date of discharge: 10/31/17 Attending Physician: Yovani Armstrong MD Primary care physician: Jacobo Perrin MD - Discharge Diagnosis (1) Nontraumatic retroperitoneal hematoma Status: Acute (2) Acute blood loss anemia Status: Acute (3) Benign essential hypertension Status: Chronic (4) Atrial fibrillation Status: Chronic 1. Nontraumatic retroperitoneal bleed with bleeding into the right iliopsoas muscle 2. Coagulopathy secondary to warfarin, mild 3. Acute blood loss anemia 4. Atrial fibrillation - Laboratory Labs: 10/31/17 04:33 10/31/17 04:33 History of Present Illness HPI: Ms. Perrin initially presented with about a 4-5 day history of worsening pain in the right flank and right lateral hip and right thigh area. Patient is on chronic warfarin. She presented to the emergency department on 10/22/2017 because of the severe and increasing pain. CT scan revealed a spontaneous, nontraumatic right iliopsoas hematoma with retroperitoneal bleed. There was concern for active bleeding. INR was somewhat elevated at 4.3. Etiology was felt to be spontaneous bleeding related to the Coumadin. Hemoglobin was down to 8.8. Patient was admitted to acute care and was given a single unit of packed red blood cells. Her blood pressure was quite elevated initially requiring the use of intravenous hydralazine. The warfarin was held due to the acute bleeding. As a result of these events, multiple functional deficits were identified and she was felt to be a good candidate for acute inpatient rehabilitation where she was transferred on 10/24/2017. Medical issues included the pain from the right iliopsoas nontraumatic hematoma, acute blood loss anemia, chronic/ permanent atrial fibrillation with warfarin currently held, benign essential hypertension. Hospital Course This is a general summary of the patient's hospital course. For more details refer to the complete medical record. The patient was admitted to acute inpatient rehabilitation on 10/24/2017 for a multidisciplinary approach to her recovery. She was seen by physical therapy and occupational therapy. She was followed by the hospitalist service as well as by Dr. Carmona, medical radiation dosimetrist of [facility]. Patient's initial hemoglobin on rehabilitation was 8.9 dropping to a low 7.9 on October 28. It then tony to 9.0 on 10/29/2017. At the time of dismissal on 2017 it remained stable at 9.0 gms%. She continued to have discomfort in the right lateral thigh area and right hip with some ecchymoses down into the right groin and suprapubic area. Abdomen remained soft however. INR on October 25 was 1.21. At that time the warfarin had been held for the prior several days. Iron studies were obtained prior to starting iron. Serum iron was 78, TIBC 328, percent saturation was 24% and serum ferritin was slightly elevated at 268. This was on 10/28/2017. The following levels of functional competence are to be considered preliminary information. The reader is encouraged to refer to actual therapy notes and reports for specific details. Patient was seen by occupational therapy. At the conclusion of the treatment, she was participating in her ADLs quite nicely. She was able to bathe with a modified independent level of functioning (use of grab bar or similar), was independent with upper body dressing and was modified independent for lower body dressing. She was also seen by physical therapy and participated nicely. At the conclusion of therapy, she was able to perform transfers with standby assistance to supervision level. She was able to ambulate at modified independent level (with 4 wheeled walker only) 199 feet. It is noted that she or her family had spoken with Dr. Kian Fermin, the patient 's school inspector. He suggested a novel agent for anticoagulation in place of warfarin. She was therefore started on Eliquis 5 mg twice daily and tolerated this well. She is now off of warfarin and using Eliquis twice daily. A new prescription was provided. In addition the patient had evidence of swelling of the right lower extremity. For this reason a venous Doppler study was done in the 24 hours prior to dismissal. This was negative for DVT. She was felt to be stable for dismissal to her home on 10/31/2017. She was given a prescription for Percocet 5/325 #30 to take 1 every 4 hours as needed for pain. Alternatively she may use plain Tylenol 650 mg for less severe pain. She will follow-up with Dr. Perrin as an outpatient. Hospital course: 10/27/17 Doing well; reassess hemoglobin in a.m. Previously discussed anticoagulation with patient's school inspector who recommended discontinuation of warfarin due to spontaneous bleed. Has been in sinus rhythm since hospitalization-EKG in a.m. to confirm that the same continues. Repeat CT abdomen/pelvis to evaluate hematoma and to exclude evidence of renal pathology. Hemoglobin in a.m. Blood pressure remains slightly elevated but improved from initial readings- increase nifedipine to 60 mg at bedtime. 10/30/17 Rt leg swelling - venous doppler ordered. D/W Dr. Munguia - start Eliquis tonight, 5 mg BID. Repeat CBC in am. CM running costs of Rx with [facility]. BP responded well to increased nifedipine dose. Plan on discharge home tomorrow with HH. Time spent with patient: greater than 35 minutes Resuscitation Status: Full Code Discharge Plan - Med Rec/Dispo Referrals/Follow Up: Jacobo Perrin MD [Primary Care Provider] - 2 Weeks (Dr. Dari Perrin on 11/15/17 at 1:40 pm for Hosp. follow-up. [address] [place] [address]) Prescriptions: New Losartan [Cozaar] 25 mg PO DAILY #15 tab Milk of Magnesia [Mom] 30 ml PO DAILY PRN udc PRN Reason: Constipation NIFEdipine XL [Procardia Xl] 60 mg PO 1999 #30 tab Senna + Docusate [Senna Plus Tablet] 1 tab PO DAILY tab Oxycodone/Acetaminophen 5/325 [Percocet 5/325] 1 tab PO Q4H PRN #30 tab PRN Reason: Pain Apixaban [Eliquis] 5 mg PO BID #60 tab Ferrous Sulfate [Feosol] 324 mg PO WB tab PEG 3350 17gm PACKET [Miralax] 17 gm PO DAILY packet Continue Atorvastatin Calcium 40 mg PO HS #0 Nitroglycerin 0.4 mg SL Q5MIN PRN #0 PRN Reason: CHEST TIGHTNESS Pyridostigmine [Mestinon] 60 mg PO TID Vitamin B Complex [Super B-50 Complex] 1 each PO DAILY Carvedilol 25 mg PO BID hydroCHLOROthiazide [Hydrochlorothiazide] 25 mg PO MOWEFR Calcium Citrate 1,200 mg PO DAILY Acetaminophen [Pain Relief] 500 mg PO Q6H Fesoterodine SR [Toviaz] 4 mg PO AM Cholecalciferol [Vit. D-3] 1,000 unit PO DAILY #0 Latanoprost 1 drop EACH EYE HS Discontinued Warfarin Sodium 4 mg PO MOTH #0 NIFEdipine [Afeditab Cr] 30 mg PO PM #0 Warfarin [Coumadin] 3 mg PO [id number] - Disposition [facility] - Dismissal Complete Discharge Instructions are:: Complete
--- NOTE | 2017-11-01 15:08 | Letter to Referring Physician ---
Dear Dr. Perrin, This is a brief note to bring you up-to-date on the status of Marylin Perrin and her stay on the acute inpatient rehabilitation unit at [facility]. As you are likely aware, this patient was admitted to [facility] acute care on 10/22/17 for acute right hip/flank pain found to be due to a right sided retroperitoneal bleed into the ileopsoas muscle. This was felt to be spontaneous and non-traumatic. While on acute care her warfarin was held and she was given a single unit of packed red blood cells. The patient was stabilized while on the acute level and admitted to inpatient rehabilitation unit at [facility] on October 24, 2017. While on inpatient rehabilitation, this patient was seen by occupational therapy and physical therapy and improved overall in their functional ability. We also monitored and managed the patient's anemia and atrial fibrillation while on Acute Rehab. She did not require additional transfusions while on inpatient rehabilitation. She or her family discussed the case with Dr. Kian Fermin, her temporary receptionist. He apparently recommended consideration be given to starting a novel agent for anticoagulation. For this reason, she remained off warfarin and was started on Eliquis 5 mg twice daily and tolerated this well. Her dismissal hemoglobin was stable at 9.0 g percent. Please see a copy of the history and physical examination as well as discharge summary faxed separately for further details. We do recommend that the patient obtain a follow up CBC with diff in about 5-7 days after dismissal. We have not arranged this at the time of the Acute Rehab stay although an appointment with you is arranged. Thank you for allowing us to be involved in this nice patient's care. Please contact me directly should you have any questions regarding their stay on the inpatient rehabilitation unit. Sincerely, Aries Carmona M.D.
== END 2017-10-31 13:57 | disposition home health service (06) | DRG 555 ==
PROVIDERS: ADMIT Family Medicine; ATTEND Family Medicine